=== PATIENT | male | born 1965 | race Caucasian/White ===

== ENCOUNTER 2018-03-22 07:16 | Inpatient (IN) | payer BC ==
[2018-03-22] VITALS (9 sets, daily range): BP systolic 105–137; BP diastolic 60–90; BMI 47.7
[~2018-03-22] VITALS: Ht 172.7 cm; Wt 152.4 kg
--- NOTE | ~2018-03-22 | OP ---
PATIENT NAME: YASMIN MATA MEDICAL RECORD: [id number] :65 LOCATION:D.M2 D.2107 ADMISSION DATE:03/27/18 SURGEON: MICHAEL MARQUEZ MD DATE OF OPERATION: 03/27/2018 SURGEON: Michael Marquez MD (JJ) CO-SURGEON: Baldomero Yi MD PREOPERATIVE DIAGNOSES: Achalasia and hiatal hernia. POSTOPERATIVE DIAGNOSES: Achalasia and hiatal hernia. PROCEDURES PERFORMED: 1. Laparoscopic hiatal hernia repair. 2. Laparoscopic Heller esophagogastromyotomy with Chuck fundoplication. 3. EGD performed by Dr. Yi. Dr. Yi was the first aid instructor for the laparoscopic hiatal hernia repair and laparoscopic esophagogastromyotomy. ESTIMATED BLOOD LOSS: 40 cc. ANESTHESIA: General. COMPLICATIONS: None. SPECIMENS: None. Case was clean. OPERATIVE COURSE: After consent was obtained, the patient was taken to the operating room and placed in the supine position on the operating table. Next, anesthesia was given via endotracheal intubation after a time-out was performed to confirm the correct patient and procedure. The abdomen was prepped and draped in typical sterile fashion. 5 cc local anesthetic was injected just above the umbilicus. A stab incision was made with an 11-blade scalpel. Using an 11-mm bladeless optical trocar, the abdomen was entered under direct laparoscopic vision. Adequate pneumoperitoneum was achieved. The abdominal cavity was inspected. No evidence of boundary, no evidence of bleeding. At this time, all remaining trocars were placed, 12 mm and 5 mm trocar into the right lateral quadrants, two 5 mm trocars in left lateral quadrant, Dc liver retractor in the subxiphoid position. All were placed after the administration of local anesthetic under direct laparoscopic vision. Dc retractor was used to elevate the left lobe of the liver, exposing the gastroesophageal junction. A meticulous dissection was performed with the Harmonic scalpel starting at the gastrohepatic ligament. Dissection continued to the level of the right crura. The right crura was skeletonized using the Harmonic scalpel. We then continued dissecting the hernia sac with the Harmonic scalpel anteriorly. Next, the short gastrics were taken along the cardia of the stomach using the Harmonic scalpel. This was done all the way to the level of the left crura. The left crura was skeletonized, both posteriorly and anteriorly, completing a complete circumferential dissection of the hiatus. The mediastinum was dissected until approximately 4-5 cm of intraabdominal esophagus obtained. The hernia sac was excised in its entirety from the GE junction. The OPERATIVE REPORT [id number] YASMIN MATA hiatus was then closed with an 0 Stratafix polypropylene suture. Next, the esophagomyotomy was performed starting at the GE junction and continued 4 cm into the superior directions of the esophagus and extended an additional 2-3 cm inferiorly under the stomach. At this time, Dr. Yi performed an esophagogastroduodenoscopy. The scope was easily traversed across the area of achalasia. There were no mucosal injuries noted. The scope was advanced into the stomach on 3 different occasions while the myotomy was completed. At this time, the scope was withdrawn. The myotomy was covered with Tisseel. A Chuck fundoplication was then performed using interrupted 3-0 Vicryl suture in an interrupted fashion. At this time, the Dc liver retractor was removed. The abdominal cavity was inspected and no evidence of bowel injury and no evidence of bleeding. The 12 mm and 11 mm trocar sites were closed with a Johnson-Wilfredo suture passer with 0 Vicryl suture under direct laparoscopic vision. At this time, all remaining instruments were removed. The abdomen was desufflated. Trocars removed. Skin was closed with 4-0 Monocryl, Mastisol, and Steri-Strips. At the end of the case, all needle and instrument counts were correct. No complications occurred. The patient was extubated and transferred to the PACU in stable condition. TRANSINT:[id number] Voice Confirmation ID: [id number] DOCUMENT ID: [id number] MICHAEL MARQUEZ MD at 0808 CC: [id number] DICTATION DATE: 03/27/181941 BACKREST ASSEMBLER: 03/27/182142 ADM IN [facility] [address] [place] [address]
[2018-03-22] MEDS ORDERED: ZESTRIL10 MG PO (07:29)
[2018-03-22] MEDS ORDERED: METOPROLOL TART50 MG PO (07:29)
[2018-03-22] MEDS ORDERED: PRAVACHOL20 MG PO (07:29)
[2018-03-22] MEDS ORDERED: PROTONIX40 MG PO (07:30)
[2018-03-22] MEDS ORDERED: ECOTRIN325 MG PO (07:30)
[2018-03-22 08:30] LABS: APPEARANCE HAZY (CLEAR); BILIRUBIN NEGATIVE (NEGATIVE); COLOR DK YELLOW (YELLOW); GLUCOSE NEGATIVE (NEGATIVE); KETONE MODERATE mg/dL (NEGATIVE); NITRITE NEGATIVE (NEGATIVE); PROTEIN NEGATIVE (NEGATIVE); SPECIFIC GRAVITY 1.025 (1.005-1.020)
[2018-03-22 08:31] LABS: AMORPHOUS SEDIMENT <1+ /lpf (NONE SEEN); BACTERIA FEW /hpf (NONE SEEN); EPITHELIAL CELLS OCC /hpf (0-5); HYALINE CAST 0-5 /lpf (NONE SEEN); MUCUS >1+ /lpf (NONE SEEN); RED CELLS - URINE RARE /hpf (0-5); URIC ACID CRYSTALS 0-5 /hpf (NONE SEEN); WHITE CELLS - URINE 0-5 /hpf (0-5)
[2018-03-22 08:33] LABS: ALBUMIN 3.7 g/dL (3.4-5.0); ALKALINE PHOSPHATASE 65 U/L (46-116); ALT (SGPT) 30 U/L (10-68); AMYLASE - SERUM 47 U/L (25-115); BILIRUBIN - TOTAL 1.28 mg/dL (0.2-1.3); CALC OSMOLALITY 287 mosm/kg (275-300); CALCIUM 8.7 mg/dL (8.5-10.1); CARBON DIOXIDE 28.3 mmol/L (21.0-32.0); CHLORIDE - SERUM 106 mmol/L (98-107); CREATININE - SERUM 1.1 mg/dL (0.6-1.3); GLUCOSE 87 mg/dL (74-106); LIPASE 163 U/L (73-393); POTASSIUM - SERUM 3.7 mmol/L (3.5-5.1); PROTEIN - SERUM 7.2 g/dL (6.4-8.2); SODIUM 144 mmol/L (136-145); TROPONIN-I < 0.017 ng/mL (0.000-0.060); UREA NITROGEN 19 mg/dL (7-18); eGFR NON AFRICAN AMERICAN 75 mL/min (90-120)
[2018-03-22 08:52] LABS: BASOPHILS 0.2 % (0-2); HEMATOCRIT 40.8 % (42.0-54.0); HEMOGLOBIN 13.6 g/dL (13.5-17.5); IMMATURE GRANULOCYTES 0.3 % (0-5); LYMPHOCYTES 10.6 % (15-50); MCH 28.4 pg (26.0-34.0); MCHC 33.3 g/dL (31.0-37.0); MCV 85.2 fL (80.0-100.0); MEAN PLATELET VOLUME 11.2 fL (7.4-10.4); MONOCYTES 5.1 % (2-11); NEUTROPHILS 82.8 % (40-80); PLATELET COUNT 128 10x3/uL (130-400); RBC 4.79 10x6/uL (4.20-6.10); RDW 13.9 % (11.5-14.5); WBC 8.7 10x3/uL (4.8-10.8)
[2018-03-22 08:57] LABS: CKMB 0.6 U/L (0.0-3.6)
[2018-03-22 08:58] LABS: CREATINE KINASE 0 UL (21-232)
[2018-03-22 11:41] LABS: CKMB 0.8 U/L (0.0-3.6); CREATINE KINASE 113 UL (21-232); TROPONIN-I < 0.017 ng/mL (0.000-0.060)
[2018-03-22 11:45] LABS: INR 1.11 (0.85-1.17); PROTIME 13.9 SECONDS (11.6-15.0)
[2018-03-22 11:46] LABS: D-DIMER-QUANTITATIVE 0.45 ug/mLFEU (0.20-0.54)
[2018-03-22 12:06] LABS: THYROID STIMULATING HORMONE 0.49 uIU/mL (0.36-3.74)
[2018-03-22 19:26] LABS: CKMB 0.6 U/L (0.0-3.6); CREATINE KINASE 103 UL (21-232)
[2018-03-22 19:29] LABS: TROPONIN-I < 0.017 ng/mL (0.000-0.060)
[2018-03-22 23:19] LABS: CKMB 0.6 U/L (0.0-3.6); CREATINE KINASE 88 UL (21-232)
[2018-03-22 23:29] LABS: TROPONIN-I < 0.017 ng/mL (0.000-0.060)
[2018-03-23] VITALS: BP 128/62
[2018-03-23 04:00] VITALS: BP 134/69
[2018-03-23 05:34] LABS: BASOPHILS 0.1 % (0-2); EOSINOPHILS 0.6 % (0-7); HEMATOCRIT 34.6 % (42.0-54.0); HEMOGLOBIN 11.1 g/dL (13.5-17.5); IMMATURE GRANULOCYTES 0.3 % (0-5); MCH 27.8 pg (26.0-34.0); MCHC 32.1 g/dL (31.0-37.0); MCV 86.5 fL (80.0-100.0); MEAN PLATELET VOLUME 10.8 fL (7.4-10.4); MONOCYTES 5.6 % (2-11); NEUTROPHILS 78.4 % (40-80); PLATELET COUNT 130 10x3/uL (130-400); RDW 13.9 % (11.5-14.5); WBC 6.7 10x3/uL (4.8-10.8)
[2018-03-23 06:03] LABS: ALBUMIN 2.9 g/dL (3.4-5.0); ALKALINE PHOSPHATASE 55 U/L (46-116); ALT (SGPT) 23 U/L (10-68); BILIRUBIN - TOTAL 1.11 mg/dL (0.2-1.3); CALCIUM 8.5 mg/dL (8.5-10.1); CARBON DIOXIDE 27.2 mmol/L (21.0-32.0); CHLORIDE - SERUM 111 mmol/L (98-107); CREATININE - SERUM 0.9 mg/dL (0.6-1.3); GLUCOSE 84 mg/dL (74-106); POTASSIUM - SERUM 3.7 mmol/L (3.5-5.1); PROTEIN - SERUM 6.4 g/dL (6.4-8.2); SODIUM 145 mmol/L (136-145); eGFR NON AFRICAN AMERICAN > 90 mL/min (90-120)
[2018-03-23 06:07] LABS: CALC OSMOLALITY 286 mosm/kg (275-300); UREA NITROGEN 11 mg/dL (7-18)
[2018-03-23 09:28] VITALS: BP 136/72
[2018-03-23 12:30] VITALS: BP 138/71
[2018-03-23 12:40] VITALS: BMI 47.6
[2018-03-23 16:10] VITALS: BP 131/67
[2018-03-23 20:00] VITALS: BP 131/72
[2018-03-24] VITALS (7 sets, daily range): BP systolic 128–153; BP diastolic 71–79
[2018-03-24 04:29] LABS: BASOPHILS 0.3 % (0-2); EOSINOPHILS 3.3 % (0-7); HEMATOCRIT 34.7 % (42.0-54.0); HEMOGLOBIN 11.3 g/dL (13.5-17.5); IMMATURE GRANULOCYTES 0.5 % (0-5); LYMPHOCYTES 26.5 % (15-50); MCHC 32.6 g/dL (31.0-37.0); MCV 85.9 fL (80.0-100.0); MONOCYTES 8.7 % (2-11); NEUTROPHILS 60.7 % (40-80); PLATELET COUNT 128 10x3/uL (130-400); RBC 4.04 10x6/uL (4.20-6.10); RDW 13.5 % (11.5-14.5)
[2018-03-24 04:34] LABS: WBC 3.9 10x3/uL (4.8-10.8)
[2018-03-24 04:59] LABS: ALBUMIN 2.8 g/dL (3.4-5.0); ALKALINE PHOSPHATASE 52 U/L (46-116); ALT (SGPT) 23 U/L (10-68); BILIRUBIN - TOTAL 0.67 mg/dL (0.2-1.3); CALC OSMOLALITY 283 mosm/kg (275-300); CALCIUM 8.3 mg/dL (8.5-10.1); CARBON DIOXIDE 25.2 mmol/L (21.0-32.0); CHLORIDE - SERUM 111 mmol/L (98-107); CREATININE - SERUM 0.7 mg/dL (0.6-1.3); GLUCOSE 85 mg/dL (74-106); POTASSIUM - SERUM 3.5 mmol/L (3.5-5.1); PROTEIN - SERUM 6.3 g/dL (6.4-8.2); SODIUM 144 mmol/L (136-145); UREA NITROGEN 8 mg/dL (7-18); eGFR NON AFRICAN AMERICAN > 90 mL/min (90-120)
[2018-03-25 01:32] VITALS: BP 141/88
[2018-03-25 04:55] LABS: BASOPHILS 0.2 % (0-2); EOSINOPHILS 3.2 % (0-7); HEMATOCRIT 33.7 % (42.0-54.0); HEMOGLOBIN 11.1 g/dL (13.5-17.5); IMMATURE GRANULOCYTES 0.5 % (0-5); LYMPHOCYTES 25.5 % (15-50); MCHC 32.9 g/dL (31.0-37.0); MCV 85.1 fL (80.0-100.0); MEAN PLATELET VOLUME 11.1 fL (7.4-10.4); MONOCYTES 8.3 % (2-11); NEUTROPHILS 62.3 % (40-80); PLATELET COUNT 126 10x3/uL (130-400); RBC 3.96 10x6/uL (4.20-6.10); RDW 13.5 % (11.5-14.5); WBC 4.4 10x3/uL (4.8-10.8)
[2018-03-25 05:21] LABS: ALBUMIN 2.8 g/dL (3.4-5.0); ALKALINE PHOSPHATASE 46 U/L (46-116); ALT (SGPT) 22 U/L (10-68); BILIRUBIN - TOTAL 0.71 mg/dL (0.2-1.3); CALC OSMOLALITY 275 mosm/kg (275-300); CALCIUM 8.4 mg/dL (8.5-10.1); CHLORIDE - SERUM 108 mmol/L (98-107); CREATININE - SERUM 0.8 mg/dL (0.6-1.3); GLUCOSE 87 mg/dL (74-106); POTASSIUM - SERUM 3.5 mmol/L (3.5-5.1); SODIUM 140 mmol/L (136-145); UREA NITROGEN 7 mg/dL (7-18); eGFR NON AFRICAN AMERICAN > 90 mL/min (90-120)
[2018-03-25 06:11] VITALS: BP 125/79
[2018-03-25 09:07] VITALS: BP 132/80
[2018-03-25 13:07] VITALS: Ht 172.7 cm; Wt 152.4 kg
[2018-03-25 16:54] VITALS: BP 140/86
[2018-03-25 20:51] VITALS: BP 148/94
[2018-03-26 00:37] VITALS: BP 136/70
[2018-03-26 04:50] LABS: BASOPHILS 0.2 % (0-2); EOSINOPHILS 3.1 % (0-7); HEMATOCRIT 32.5 % (42.0-54.0); IMMATURE GRANULOCYTES 0.5 % (0-5); LYMPHOCYTES 23.6 % (15-50); MCH 28.1 pg (26.0-34.0); MCHC 33.8 g/dL (31.0-37.0); MEAN PLATELET VOLUME 10.7 fL (7.4-10.4); MONOCYTES 8.7 % (2-11); NEUTROPHILS 63.9 % (40-80); PLATELET COUNT 120 10x3/uL (130-400); RBC 3.91 10x6/uL (4.20-6.10); RDW 13.3 % (11.5-14.5); WBC 4.2 10x3/uL (4.8-10.8)
[2018-03-26 04:51] LABS: MCV 83.1 fL (80.0-100.0)
[2018-03-26 05:15] LABS: ALBUMIN 2.7 g/dL (3.4-5.0); ALKALINE PHOSPHATASE 50 U/L (46-116); ALT (SGPT) 24 U/L (10-68); BILIRUBIN - TOTAL 0.97 mg/dL (0.2-1.3); CALC OSMOLALITY 278 mosm/kg (275-300); CALCIUM 8.5 mg/dL (8.5-10.1); CARBON DIOXIDE 27.9 mmol/L (21.0-32.0); CHLORIDE - SERUM 107 mmol/L (98-107); CREATININE - SERUM 0.7 mg/dL (0.6-1.3); GLUCOSE 101 mg/dL (74-106); POTASSIUM - SERUM 3.5 mmol/L (3.5-5.1); PROTEIN - SERUM 5.9 g/dL (6.4-8.2); SODIUM 141 mmol/L (136-145); UREA NITROGEN 8 mg/dL (7-18); eGFR NON AFRICAN AMERICAN > 90 mL/min (90-120)
[2018-03-26 06:06] VITALS: BP 139/75
[2018-03-26 08:48] VITALS: BP 138/87
[2018-03-26 11:58] VITALS: BP 145/82
[2018-03-26 20:30] VITALS: BP 130/86
[2018-03-27 00:30] VITALS: BP 120/80
[2018-03-27 04:30] VITALS: BP 108/63
[2018-03-27 04:56] LABS: BASOPHILS 0.2 % (0-2); EOSINOPHILS 3.2 % (0-7); HEMATOCRIT 34.5 % (42.0-54.0); HEMOGLOBIN 11.7 g/dL (13.5-17.5); IMMATURE GRANULOCYTES 0.5 % (0-5); LYMPHOCYTES 21.2 % (15-50); MCHC 33.9 g/dL (31.0-37.0); MCV 82.5 fL (80.0-100.0); MEAN PLATELET VOLUME 10.3 fL (7.4-10.4); MONOCYTES 9.1 % (2-11); NEUTROPHILS 65.8 % (40-80); PLATELET COUNT 119 10x3/uL (130-400); RBC 4.18 10x6/uL (4.20-6.10); RDW 13.4 % (11.5-14.5); WBC 4.1 10x3/uL (4.8-10.8)
[2018-03-27 05:19] LABS: ALBUMIN 2.8 g/dL (3.4-5.0); ALKALINE PHOSPHATASE 50 U/L (46-116); ALT (SGPT) 25 U/L (10-68); BILIRUBIN - TOTAL 1.14 mg/dL (0.2-1.3); CALC OSMOLALITY 278 mosm/kg (275-300); CALCIUM 8.3 mg/dL (8.5-10.1); CARBON DIOXIDE 29.3 mmol/L (21.0-32.0); CHLORIDE - SERUM 105 mmol/L (98-107); CREATININE - SERUM 0.7 mg/dL (0.6-1.3); GLUCOSE 100 mg/dL (74-106); POTASSIUM - SERUM 3.6 mmol/L (3.5-5.1); PROTEIN - SERUM 5.5 g/dL (6.4-8.2); SODIUM 141 mmol/L (136-145); UREA NITROGEN 7 mg/dL (7-18); eGFR NON AFRICAN AMERICAN > 90 mL/min (90-120)
[2018-03-27 09:39] VITALS: BP 129/71
[2018-03-27 11:32] LABS: % SATURATION 13 % (15-55); IRON 29 ug/dl (35-150); TOTAL IRON BIND CAPACITY 212 ug/dl (260-445); UNSAT IRON BIND CAPACITY 183 ug/dl (150-375)
[2018-03-27 13:30] VITALS: BP 155/83
[2018-03-27 17:09] VITALS: BP 146/79
[2018-03-27 21:04] VITALS: BP 122/65
[2018-03-28] VITALS: BP 142/81
[2018-03-28 04:00] VITALS: BP 131/70
[2018-03-28 06:13] LABS: ANION GAP 10.7 mmol/L (8-16); CALCIUM 8.3 mg/dL (8.5-10.1); CARBON DIOXIDE 28.4 mmol/L (21.0-32.0); POTASSIUM - SERUM 4.1 mmol/L (3.5-5.1)
[2018-03-28 06:19] LABS: CREATININE - SERUM 1.1 mg/dL (0.6-1.3)
[2018-03-28 06:57] LABS: BASOPHILS 0.2 % (0-2); EOSINOPHILS 0.2 % (0-7); HEMATOCRIT 36.9 % (42.0-54.0); HEMOGLOBIN 12.5 g/dL (13.5-17.5); IMMATURE GRANULOCYTES 0.5 % (0-5); MCH 28.4 pg (26.0-34.0); MCHC 33.9 g/dL (31.0-37.0); MCV 83.9 fL (80.0-100.0); MEAN PLATELET VOLUME 10.9 fL (7.4-10.4); MONOCYTES 4.4 % (2-11); NEUTROPHILS 88.7 % (40-80); PLATELET COUNT 110 10x3/uL (130-400); RDW 13.9 % (11.5-14.5)
[2018-03-28 07:00] LABS: WBC 6.6 10x3/uL (4.8-10.8)
[2018-03-28 08:21] VITALS: BP 142/80
[2018-03-28 10:14] LABS: FOLATE (FOLIC ACID) - SERUM 4.2 ng/mL (>3.0)
[2018-03-28 11:47] VITALS: BP 123/69
[2018-03-28 16:30] VITALS: BP 137/79
[2018-03-28 20:49] VITALS: BP 139/82
[2018-03-29 00:35] VITALS: BP 134/72
[2018-03-29 05:15] VITALS: BP 139/72
[2018-03-29 05:32] LABS: BASOPHILS 0.1 % (0-2); EOSINOPHILS 1.9 % (0-7); HEMATOCRIT 35.6 % (42.0-54.0); HEMOGLOBIN 11.9 g/dL (13.5-17.5); IMMATURE GRANULOCYTES 0.3 % (0-5); LYMPHOCYTES 4.6 % (15-50); MCH 28.4 pg (26.0-34.0); MCHC 33.4 g/dL (31.0-37.0); MEAN PLATELET VOLUME 11.2 fL (7.4-10.4); MONOCYTES 4.8 % (2-11); NEUTROPHILS 88.3 % (40-80); PLATELET COUNT 115 10x3/uL (130-400); RBC 4.19 10x6/uL (4.20-6.10); RDW 14.1 % (11.5-14.5); WBC 7.9 10x3/uL (4.8-10.8)
[2018-03-29 05:45] LABS: CALC OSMOLALITY 274 mosm/kg (275-300); CALCIUM 8.3 mg/dL (8.5-10.1); CARBON DIOXIDE 32.6 mmol/L (21.0-32.0); CHLORIDE - SERUM 104 mmol/L (98-107); CREATININE - SERUM 0.9 mg/dL (0.6-1.3); GLUCOSE 107 mg/dL (74-106); POTASSIUM - SERUM 4.1 mmol/L (3.5-5.1); SODIUM 138 mmol/L (136-145); UREA NITROGEN 11 mg/dL (7-18); eGFR NON AFRICAN AMERICAN > 90 mL/min (90-120)
[2018-03-29 07:55] VITALS: BP 122/70
[2018-03-29 11:14] VITALS: BP 114/66
[2018-03-29] MEDS ORDERED: CYCLOBENZAPRINE10 MG PO (13:39)
[2018-03-29] MEDS ORDERED: OXYCODONE HCL5 MG PO (13:39)
[2018-03-29 15:43] VITALS: BP 112/67
[2018-03-29 20:21] VITALS: BP 101/53
[2018-03-30 00:31] VITALS: BP 120/69
[2018-03-30 04:37] VITALS: BP 122/71
[2018-03-30 05:43] LABS: BASOPHILS 0.3 % (0-2); EOSINOPHILS 4.5 % (0-7); HEMOGLOBIN 12.9 g/dL (13.5-17.5); IMMATURE GRANULOCYTES 0.5 % (0-5); LYMPHOCYTES 11.3 % (15-50); MCH 28.2 pg (26.0-34.0); MCHC 33.1 g/dL (31.0-37.0); MCV 85.3 fL (80.0-100.0); MEAN PLATELET VOLUME 11.4 fL (7.4-10.4); NEUTROPHILS 75.4 % (40-80); PLATELET COUNT 136 10x3/uL (130-400); RBC 4.57 10x6/uL (4.20-6.10); RDW 14.5 % (11.5-14.5); WBC 6.4 10x3/uL (4.8-10.8)
[2018-03-30 06:00] LABS: CALC OSMOLALITY 279 mosm/kg (275-300); CALCIUM 8.9 mg/dL (8.5-10.1); CARBON DIOXIDE 30.7 mmol/L (21.0-32.0); CHLORIDE - SERUM 104 mmol/L (98-107); CREATININE - SERUM 0.9 mg/dL (0.6-1.3); GLUCOSE 95 mg/dL (74-106); POTASSIUM - SERUM 3.6 mmol/L (3.5-5.1); SODIUM 141 mmol/L (136-145); UREA NITROGEN 9 mg/dL (7-18); eGFR NON AFRICAN AMERICAN > 90 mL/min (90-120)
[2018-03-30 07:52] VITALS: BP 125/65
[2018-03-30 12:15] VITALS: BP 111/56
[2018-03-30 16:12] VITALS: BP 123/67
== END 2018-03-30 18:44 | disposition home or self-care (01) | DRG 326 ==
LOC: D.ER 07:16 → D.EDHOLD 10:59 → D.M2 10:59 → OBSVTIME 10:59 → D.M2 13:46 → D.SDCHOLD 03-23 13:18 → D.M2 03-23 13:20
PROVIDERS: Family Medicine; Internal Medicine Nephrology; Surgery
PROC: 0DJ08ZZ Inspection of Upper Intestinal Tract, Via Natural or Artificial Opening Endoscopic (ICD-10-PCS; 2018-03-22)
PROC: 0BQT4ZZ Repair Diaphragm, Percutaneous Endoscopic Approach (ICD-10-PCS; 2018-03-27)
PROC: 0DV44ZZ Restriction of Esophagogastric Junction, Percutaneous Endoscopic Approach (ICD-10-PCS; principal; 2018-03-27 12:30)
PROC: 0D844ZZ Division of Esophagogastric Junction, Percutaneous Endoscopic Approach (ICD-10-PCS; 2018-03-27 12:30)
DX: K22.0 Achalasia of cardia (principal); E43 Unspecified severe protein-calorie malnutrition; Z68.42 Body mass index [BMI] 45.0-49.9, adult; D61.818 Other pancytopenia; K44.9 Diaphragmatic hernia without obstruction or gangrene; K22.2 Esophageal obstruction; I10 Essential (primary) hypertension; I25.10 Atherosclerotic heart disease of native coronary artery without angina pectoris; R13.10 Dysphagia, unspecified

== ENCOUNTER 2018-04-02 13:03 | Inpatient (IN) | payer BC ==
[~2018-04-02] VITALS: Ht 172.7 cm
--- NOTE | ~2018-04-02 | PN ---
PATIENT:YASMIN MATA MEDICAL RECORD: [id number] LOCATION:D.ICU D.231 ADMISSION DATE: 04/04/18 PROGRESS NOTE DATE OF SERVICE: 04/22/2018 SUBJECTIVE: This is a 52-year-old man, who has a Boerhaave syndrome with esophageal stricture. This was repaired and was asked to drink clear liquids. The patient ate potatoes and potato soup. The patient has severe chest pain radiating to the back, also had abdominal pain. He was seen with respiratory distress. He was noted to have peritonitis, pneumonia, and right pleural effusion. The patient was taken to surgery and lavaged with saline. Has been on the ventilator, has had thoracentesis. The patient has had antibiotics. He has also had multiple transfusions because of anemia. He has had GI bleed. Has also had focal seizures. He has been on Keppra as well as Ativan for seizure control. A CT scan shows no acute injury. The patient continues to be on antibiotics for pneumoperitoneum as well as pneumomediastinum due to esophageal tear. PHYSICAL EXAMINATION: GENERAL: Reveals a middle-aged man, who is sedated on the ventilator. VITAL SIGNS: Temperature 98.2, heart rate of 120, respiratory rate of 22, blood pressure 118/79, saturations 97%. SHEENT: The patient has nasogastric tube. NECK: Supple. There is a tracheostomy tube. CHEST: Showed some mild crackles. No accessory muscle use. CARDIAC: Shows no jugular venous distention, murmur, or gallops. ABDOMEN: Benign. There is VAC. NEUROLOGIC: The patient is sedated. There are no focal signs. LABORATORY DATA: Lab exam showed white count of 9.2, hemoglobin 5.2, platelet count is 242,000. Arterial blood gas: PH 7.45, pCO2 of 42, pO2 of 139, on 50%. Chemistry is remarkable for creatinine of 1.6, BUN of 40. Chest x-ray showed worsening left basilar airspace disease and pleural effusion, status post left chest tube removal. ASSESSMENT: 1. Acute respiratory failure with hypercapnia and hypoxia. 2. Esophageal tear. 3. Pneumomediastinum, pneumoperitoneum. 4. Focal seizure disorder. 5. Severe anemia secondary to blood loss. 6. Boerhaave syndrome. 7. Coronary artery disease, status post [place]. DISCUSSION: NEUROPSYCHIATRY: The patient is sedated. It is unclear if the patient is having seizures. There are no focal signs. CARDIOVASCULAR: No issues at this time. He has a history of coronary artery disease and [place] in the past. PULMONARY/RESPIRATORY: The patient on mechanical ventilator. He is on bronchodilators. He had pneumomediastinum, which is resolved. GASTROINTESTINAL/DIETARY: The patient is tolerating tube feedings. PLAN: PROGRESS NOTE [id number] YASMIN MATA 1. Blood transfusion. 2. Continue mechanical ventilation. We will begin to wean the patient off the ventilator tomorrow morning if there is no event. 3. Continue bronchodilators. TRANSINT:[id number] Voice Confirmation ID: [id number] DOCUMENT ID: [id number] JOEL ROLLINS at 0836 CC: [id number] DICTATION DATE: 04/22/18 1130 TRACK SUPERVISOR: 04/22/18 1328 ADM IN [facility] [address] [place] [address]
--- NOTE | ~2018-04-02 | PN ---
PATIENT:YASMIN MATA MEDICAL RECORD: [id number] LOCATION:.[facility] D.231 ADMISSION DATE: 04/04/18 PROGRESS NOTE DATE OF SERVICE: 04/19/2018 This is a 52-year-old man who has had a history of esophageal stricture and was repaired. SUBJECTIVE: The patient was asked to drink lot of fluids, but decided to eat potatoes and potato soup. The patient developed severe retching, chest pain which radiates to the back. He was brought to the Emergency Room in severe respiratory distress and was intubated, suspected peritonitis, ruptured esophagus. The patient was taken to surgery and the peritoneal was lavaged. He also had a chest tube drainage. The patient has been on the ventilator, sedated. There is no fever or chills. PHYSICAL EXAMINATION: GENERAL: Reveals middle-aged man who is on a ventilator. VITAL SIGNS: Temperature 99.1, heart rate of 102, respiratory rate of 19, blood pressure 116/70, he is 94% on 50% FiO2. SHEENT: Normocephalic. Pupils equal and reactive. NECK: Supple. CHEST: Showed bilateral coarse crackles. HEART: Shows no jugular venous distention. ABDOMEN: There is no tenderness. There is no distention. EXTREMITIES: Shows no clubbing, cyanosis or edema. LABORATORY DATA: Showed patchy airspace disease, interstitial prominence with probable small pleural effusions. CBC showed white count 9.7, hemoglobin of 9, the platelet count is 264,000. Chemistry is remarkable for sodium of 148, potassium is 4.1, creatinine is 1.8, BUN is 29. Arterial blood gas; pH is 7.47, pCO2 of 45, pO2 is 73. ASSESSMENT: 1. Aspiration pneumonia. The patient is on antibiotics. No leukocytosis. Chest x-ray showed persistent infiltrates. 2. Peritonitis. Status post saline lavage. 3. Anemia. 4. Acute kidney injury. 5. Morbid obesity. DISCUSSION: 1. Neuropsychiatric: The patient is sedated. No focal signs. 2. Cardiovascular: There are no arrhythmias or evidence of congestive heart failure. 3. Pulmonary and respiratory: The patient is on mechanical ventilator; and pneumonia, some bronchodilators. 3. Gastrointestinal and dietary: The patient is n.p.o., has nothing by mouth. PLAN: 1. Vent support. 2. Continue antibiotics. TRANSINT:[id number] Voice Confirmation ID: [id number] DOCUMENT ID: [id number] PROGRESS NOTE [id number] YASMIN MATA AUGUSTINE K at 0809 CC: [id number] DICTATION DATE: 04/19/182157 FISHER REEF NET: 04/20/18 0947 ADM IN [facility] [address] [place] [address]
--- NOTE | ~2018-04-02 | PN ---
PATIENT:YASMIN MATA MEDICAL RECORD: [id number] LOCATION:D.ICU D.231 ADMISSION DATE: 04/04/18 PROGRESS NOTE DATE OF SERVICE: 04/17/2018 SUBJECTIVE: A 52-year-old man who has had esophageal stricture repair procedure. The patient was sent home and instructed to eat anything, but clear liquids or water. The patient apparently ate some potato soup as well as potatoes. He began to retch, pain in the chest as well as in the back. He was noted in respiratory arrest, was intubated and did well. He was noted to have left pleural effusion. Chest tube was placed. The possibility of esophageal tear was detained and the patient is being treated as such. OBJECTIVE: GENERAL: Reveals a middle-aged man, who is in no acute distress, on a ventilator, sedated. VITAL SIGNS: Temperature 99.9, heart rate of 105, respiratory rate 50, blood pressure 116/73, saturation 93. SHEENT: Unremarkable. NECK: Supple. There is no adenopathy. Trachea is midline. CHEST: Coarse crackles bilaterally, worse on the left. CARDIAC: Showed no jugular venous distention, murmur, or gallop. ABDOMEN: Benign. EXTREMITIES: No clubbing, cyanosis, or edema. NEUROLOGIC: The patient moves all extremities. No focal signs. He is currently sedated. LABORATORY DATA: Lab exam showed white count of 8.1, hemoglobin 8.4, and platelet count is 305,000. Arterial blood gas: PH of 7.48, pCO2 of 44, pO2 of 128, on 100% FIO2. Chemistries remarkable for sodium of 147, creatinine is 1.6, magnesium 2.9. Phosphorus 2.9, albumin 1.4. ASSESSMENT: 1. Acute respiratory failure status post cardiopulmonary arrest. 2. Cardiopulmonary arrest, probably secondary to esophageal tear. 3. History of achalasia with repair and esophageal tear. It has been followed by surgery. 4. Hypoalbuminemia. PLAN: 1. Ventilatory support and bronchodilator therapy. 2. Empiric antibiotics. We need to add Diflucan for fungal infection. TRANSINT:[id number] Voice Confirmation ID: [id number] DOCUMENT ID: [id number] PROGRESS NOTE [id number] YASMIN MATA JOEL ROLLINS at 0809 CC: [id number] DICTATION DATE: 04/17/18 2356 RN HOSPITAL: 04/18/18 0921 ADM IN [facility] [address] [place] [id number]
--- NOTE | ~2018-04-02 | OP ---
PATIENT NAME: YASMIN MATA MEDICAL RECORD: [id number] :65 LOCATION:.[facility] D.2312 ADMISSION DATE:04/04/18 SURGEON: MICHAEL MARQUEZ MD DATE OF OPERATION: 04/10/2018 SURGEON: Michael Marquez MD PREOPERATIVE DIAGNOSES: 1. Esophageal perforation. 2. Sepsis. 3. Boerhaave syndrome. 4. History of achalasia. 5. History of Heller myotomy. POSTOPERATIVE DIAGNOSES: 1. Esophageal perforation. 2. Sepsis. 3. Boerhaave syndrome. 4. History of achalasia. 5. History of Heller myotomy. PROCEDURE PERFORMED: 1. Abdominal washout. 2. Delayed removal of wound VAC and delayed abdominal closure. 3. Replacement of negative pressure wound therapy, VAC greater than 50 squared-cm. ANESTHESIA: General. COMPLICATIONS: None. SPECIMENS: None. Case was contaminated. OPERATIVE COURSE: After consent was obtained, the patient was taken to the operating room and placed in the supine position on the operating table. Next, general anesthesia was given via endotracheal intubation after a timeout was taken to confirm the correct patient and procedure. The intra-abdominal ABThera VAC was removed. The abdomen was prepped and draped in typical sterile fashion. A Bookwalter retractor was placed. The abdominal wound was placed under retraction. The abdomen was copiously irrigated with 3 liters of warm normal saline. All 4 quadrants were inspected. There was no intra-abdominal fluid collections identified. There was no succuss. The anterior surface of the stomach and the anterior esophagus were examined and there was no evidence of leak. The suture line was healing well. The VELMA drain was placed through the hiatus and into the lower inferior mediastinum. Evicel was again placed on the anterior surface of the esophagus and stomach over the area of primary repair. The omental tissue flap was again placed onto the anterior suture line repair and stay sutures were placed to the diaphragm using 3-0 Vicryl suture. The jejunal feeding tube site was inspected. It was healing well to the anterior abdominal wall with no sign of obstruction. At this time, the retractor was removed. The abdomen was again copiously irrigated and suctioned. The fascia was closed with #1 looped PDS. A silver wound VAC was placed in the subcutaneous tissue and placed at the wound. Wound VAC was approximately 20 cm OPERATIVE REPORT [id number] YASMIN MATA in length x 6 cm in width x 4 cm in depth. It was placed to suction with good seal. At the end of the case, all needle and instrument counts were correct. No complications occurred. The patient was transferred to the ICU in critical condition. TRANSINT:[id number] Voice Confirmation ID: [id number] DOCUMENT ID: [id number] MICHAEL MARQUEZ MD at 1722 CC: [id number] DICTATION DATE: 04/10/18 1518 QUILL CLEANER: 04/10/18 1713 ADM IN [place] [id number] [place] [address]
--- NOTE | ~2018-04-02 | HEMODYNAMI ---
PATIENT:YASMIN MATA MEDICAL RECORD: [id number] : 65 LOCATION:[facility] D.231 ADMISSION DATE: 04/04/18 Generatedon:04/25/201816:45 Patient name: YASMIN MATA Patient #: [id number] SSN: : [birth year] Date of study: 04/25/2018 Page: Of Hemodynamic Procedure Report Patient Data Patient Demographics Procedure consent was obtained First Name: YASMIN Gender: Male Last Name: ADOLFO : 1965 [facility] Initial: PAIGE Age: 52 year(s) Patient #: [id number] Race: Unknown Additional ID: [id number] Contact details [address]: [address] [place] [address] COURT State: [place] City: [facility] Zip code: [address] Admission Admission Data Admission Date: 04/04/2018 Admission Time: 14:57 Room #: [facility] Procedure Procedure Types Cath Procedure Peripheral Cath Diagnostic Procedure Miscellaneous Procedure Description Procedure Date Procedure Date: 04/25/2018 Procedure Start Time: 15:55 Procedure Staff Name Function Long De Jesus MD Performing Physician Pedro Benavides RT Monitor Ary Davidson RT Scrub Lizzy Hudson RN Nurse Procedure Data Cath Procedure Fluoroscopy Diagnostic fluoroscopy Total fluoroscopy Time: 4.4 time: 4.4 min min Diagnostic fluoroscopy Total fluoroscopy dose: 622 dose: 622 mGy mGy Contrast Material Contrast Material Type Amount (ml) Isovue 300 65 Diagnostic catheters Device Type Used For End Catheter Placement Merit UHF Pigtail VESSEL SIZING 5Fr 65CM catheter ([id number]) Merit UHF Pigtail VESSEL SIZING 5Fr 65CM catheter ([id number]) Procedure Medications Medication Administration Route Dosage Heparin Flush Bag added to field 2 bags (1000units/500ml NS) Heparin Flush Bag added to field 1 bags (1000units/500ml NS) Lidocaine 1% 20 Hemodynamics Rest Pre Cath Intra NCS Post Cath Medications Time Medication Route Dose Verified Delivered Reason Notes Effecti veness by by 15:53:05 Heparin Flush added 2 Long Bag to bags Agustína, (1000units/500ml field NS) 15:53:17 Heparin Flush added 1 Long Bag to bags Burda, (1000units/500ml field NS) 15:53:28 Lidocaine 1% 20ml Long vial MD Liza Procedure Log Time Note 15:31:25 Pedro Benavides RT (R) (CV) sent for patient. Start room use. 15:31:33 Time tracking: Regular hours (M-F 7:00 - 5:00) 15:31:38 Plan of Care:Hemodynamics will remain stable., Cardiac rhythm will remain stable., Comfort level will be maintained., Respiratory function will remain adequate., Patient/ family verbilizes understanding of procedure., Procedure tolerated without complication., Recovers from procedure without complications.. 15:31:44 Patient received from ICU to IR Alert and oriented. Tansferred to table in Supine position. 15:31:45 Correct patient and procedure confirmed by team. 15:31:48 Signed procedure consent form obtained from spouse. 15:31:51 ECG and BP/O2 sat monitors applied to patient. 15:31:53 Full Disclosure recording started 15:31:54 - 15:32:07 Unable to provide pre-op teaching due to educational barrier. pt on gee t 15:32:09 Family unavailable. 15:32:12 Patient NPO since Midnight. 15:43:47 Right neck area was prepped with chlora-prep and draped in sterile fashion 15:46:40 pt on icu monitor. icu nurse bolused versed 4mg. vs stable 15:53:05 Heparin Flush Bag (1000units/500ml NS) 2 bags added to field was administered by ; ; 15:53:17 Heparin Flush Bag (1000units/500ml NS) 1 bags added to field was administered by ; ; 15:53:28 Lidocaine 1% 20ml vial was administered by ; ; 15:54:42 Physician arrived 15:54:43 --------ALL STOP TIME OUT------ 15:54:44 Final Timeout: patient, procedure, and site verified with staff and physician. All members of the team are in agreement. 15:54:46 Right neck site verified by team. 15:54:55 Sedation plan: Local Anesthetic Medication:Lidocaine 15:55:04 Procedure started. 15:55:08 Local anesthetic to right IJ vein with Lidocaine 1% by Long De Jesus MD.INITIAL ACCESS ONLY 15:55:18 A Site Tour UHF Pigtail VESSEL SIZING 5Fr 65CM catheter ([id number]) was advanced over the wire and used for . 15:55:19 TUBING Contrast Injection High Pressure (GNA017A) opened to sterile field. 15:55:19 TUBING Contrast Injection High Pressure (QRO293N) opened to sterile field. 15:55:20 DOC .035 wire (O90848) opened to sterile field. 15:55:20 Micropuncture VSI 4FR kit opened to sterile field. 15:55:22 A WeOrder LTDF Pigtail VESSEL SIZING 5Fr 65CM catheter ([id number]) was advanced over the wire and used for . 15:55:23 SHEATH 5FR [place] (PWF746) opened to sterile field. 15:55:24 FILTER Beltrami Jugular Vena Cava (SC815A) opened to sterile field. 15:59:48 GLIDE CATHETER 5FR ANGLED 65cm (CG507) opened to sterile field. 16:07:24 Beltrami Jugular IVC filter was placed below renal veins. 16:07:59 AMPLATZ Super stiff 180cm wire ([id number]) opened to sterile field. 16:14:55 Procedure ended.(Physican Out) 16:15:13 Fluoroscopy time 04.40 minutes. 16:15:26 Fluoroscopy dose: 622 mGy 16:15:26 Flurop Dose total: 622 16:15:40 Contrast amount:Isovue 300 65ml. 16:15:41 Sharps counted by scrub and verified by R.N. 16:15:56 Insertion/operative site no bleeding no hematoma. 16:16:01 Post-op/insertion site Right Jugular vein dressed using a 4 x 4 and Tegaderm. 16:16:14 Post right IJ vein:stable 16:17:00 UNALBLE TO GIVE POST INSTRUCTIONS DUE TO PT ON VENT 16:22:01 Procedure and supply charges have been captured, reviewed, submitted an d are correct. 16:44:56 Report given to ICU. 16:45:00 Patient transfered to ICU with Bed. Device Usage Item Name Manufacture Quantity Catalog Hospital Part Current Minima l Lot# / Number Charge Number Stock Stock Serial# Code Merit UH Merit 2 [id number] 5 Pigtail Medical VESSEL SIZING 5Fr 65CM catheter ([id number]) TUBING Merit 2 [id number] 380699 174137 5 Contrast Medical Injection High Pressure (UNA092I) DOC .035 wire Cook [employer] 1 [id number] 260749 575866 5 (O33756) Micropuncture VSI VASCULAR 1 7266V 321718 112134 5 VSI 4FR kit SOLUTIONS SHEATH 5FR Terumo 1 ZMU730 273541 913133 327153 40 [place] (SVG086) FILTER Connie Bard 1 [id number] 623409 913331 664058 5 [id number] Jugular Vena Cava (KC647F) GLIDE Terumo 1 CG507 633487 412579 5 CATHETER 5FR ANGLED 65cm (CG507) AMPLATZ Super [place] 1 [id number] 506800 404148 5 [id number] stiff 180cm Scientific wire ([id number]) Signature Audit Nellis Stage Time Signature Unsigned Intra-Procedure 04/25/2018 Pedro 4:45:23 PM Makayla RT (R) (CV) Signatures Monitor : Pedro Signature : Makayla RT Date : Time : [place] [id number] [place] [address]
--- NOTE | ~2018-04-02 | EC ---
PATIENT:YASMIN MATA DATE OF SERVICE: 04/04/18 SEX: M MEDICAL RECORD: [id number] DATE OF : 65 LOCATION:[place] [address] AGE OF PATIENT: 52 ADMISSION DATE: 04/04/18 REFERRING PHYSICIAN: INTERPRETING PHYSICIAN: BAY JONES MD ECHOCARDIOGRAM REPORT ECHO CHARGES 4 ECHO COMPLETE Date: 04/16 CLINICAL DIAGNOSIS: PE/POST CODE ASSES FOR CLOTS ECHOCARDIOGRAPHIC MEASUREMENTS (adult normal given) AC root (d.<3.7cm) 4.2 cm LV Septum d (<1.2 cm> 1.8 cm Valve Excursion 1.4 cm LV Septum (systole) 2.0 cm Left Atria (s.<4.0cm> 3.5 cm LVPW d(<1.2cm) 1.8 cm RV (d.<2.3cm) 3.7 cm LVPW (sytole) 2.0 cm LV diastole(<5.6CM) 4.7 cm MV E-F(>70mm/sec) cm LV systole 2.8 cm LVOT Diameter 1.9 cm MV exc.(>10mm) 1.5 cm Est.ejection fraction (50-75%) % DOPPLER: LVIT cm/sec A 78.0 cm/sec E 108 cm/sec LA cm/sec RVSP 62 mmHg LVOT 111 cm/sec AOP1/2T m/s Asc. Ao 201 cm/sec RVOT 83 cm/sec RA cm/sec PA 114 cm/sec AV Gradient Peak 16.18mmHg AV Mean 7.98 mmHg AV Area 1.6 cm MV Gradient Peak 6.48 mmHg MV Mean 2.26 mmHg MV Area cm COMMENTS: Row Boss Hoeing: 2 KEELY WONG Developmental Training Counselor: 3 Dr. Seasl TAPE# PACS Pericardial Effusion N DATE OF SERVICE: A technically difficult study due to the patient's underlying respiratory status. Adequate 2D, color flow, spectral Doppler, M-mode. LVH present. LV internal dimensions are normal. Wall motion is normal. EF is greater than 55%. Aortic valve tricuspid. No evidence of stenosis by Doppler interrogation. Left atrium is normal at 3.5 cm. The mitral valve shows no ECHOCARDIOGRAM REPORT [id number] YASMIN MATA prolapse. There is a possible vegetation on the anterior leaflet with moderate MR. Right-sided chambers are grossly normal. Moderate TR on color flow imaging. TRANSINT:[id number] Voice Confirmation ID: [id number] DOCUMENT ID: [id number] BAY JONES MD at 1254 CC: [id number] DICTATION DATE: 04/17/18 0833 LOCKS INSPECTOR: 04/17/18 1125 [facility] [place] [id number] [place] [id number]
--- NOTE | ~2018-04-02 | PN ---
PATIENT:YASMIN MATA MEDICAL RECORD: [id number] LOCATION:D.ICU D.231 ADMISSION DATE: 04/04/18 PROGRESS NOTE DATE OF SERVICE: 04/21/2018 HISTORY: This is a 52-year-old man who has had esophageal stricture repaired, but ate solid food. Subsequently, had chest pain anteriorly, radiating to the back. The patient also has severe shortness of breath, seen in the Emergency Room and was noted there to have basilar infiltrates with peritonitis. The patient was taken to surgery with evacuation and washing of the abdomen. The patient has been on the ventilator. Has had eventful course, there is also some bleeding. He has also had a seizure disorder yesterday. The patient has had focal seizures, was given Ativan and Keppra with improvement. The patient's NG tube was plugged and had some GI bleed with blood coming out of the mouth this morning. The patient is sedated on the ventilator. PHYSICAL EXAMINATION: GENERAL: Reveals middle-aged gentleman, who is in no acute distress, sedated. VITAL SIGNS: Temperature 98.2, heart rate of 84, respiratory rate 20, blood pressure 153/105, saturation 98%. SHEENT: Showed nasogastric tube. NECK: Supple. CHEST: Showed mild bilateral crackles. ABDOMEN: No abdominal tenderness. EXTREMITIES: Without clubbing, cyanosis or edema. LABORATORY DATA: Showed white count of 6.9, hemoglobin 8.5, platelet count is 235. Blood gas pH 7.41, pCO2 of 45, pO2 of 74 on 50%. Chemistry is remarkable for creatinine of 1.6, sodium is 146, bicarb is 30. ASSESSMENT: 1. Bilateral pneumonia. 2. Pleural effusion, most likely empyema. 3. Peritonitis. 4. Acute respiratory failure with hypoxia. The patient is currently on ventilator. 5. Seizure is focal, improved on the seizure medications. 6. Acute kidney injury. We will monitor. 7. Hypernatremia. Monitor this to see if the patient is free water. DISCUSSION: NEUROPSYCHIATRIC: The patient is sedated. No focal signs. CARDIOVASCULAR: There are no issues in this patient. PULMONARY/RESPIRATORY: The patient has pneumonia and is on ventilator for acute respiratory failure. GASTROINTESTINAL/DIETARY: The patient is on tube feeding. Has had gastrointestinal bleed with coagulation. The patient has anemia, which is mild. Has had blood transfusions recently. PLAN: 1. Ventilator support. 2. Continue antibiotics. 3. Continue Keppra. 4. CT scan of the head for etiology of the seizures. PROGRESS NOTE [id number] YASMIN MATA TRANSINT:[id number] Voice Confirmation ID: [id number] DOCUMENT ID: [id number] JEOL ROLLINS at 0806 CC: [id number] DICTATION DATE: 04/21/18 1227 WAREHOUSE DISTRIBUTION MANAGER: 04/21/18 1349 ADM IN [place] [address] [place] [address]
--- NOTE | ~2018-04-02 | OP ---
PATIENT NAME: YASMIN MATA MEDICAL RECORD: [id number] :65 LOCATION:D.M2 D.2138 ADMISSION DATE:04/04/18 SURGEON: PINKY SMALLWOOD MD DATE OF OPERATION: 04/05/[address] SHAUN Marquez with placement of an esophageal stent. My involvement in the procedure was a minor involvement. It consisted of some advancement of the wire that had been advanced down the esophagus and into the stomach. Some advancement of the esophageal stent deployment device and advancement of it through the EG junction and into the stomach. That ended my involvement in the operative procedure. TRANSINT:[id number] Voice Confirmation ID: [id number] DOCUMENT ID: [id number] PINKY SMALLWOOD MD at 1718 CC: MICHAEL MARQUEZ MD [id number] DICTATION DATE: 04/05/18 1715 MANAGER SERVICING: 04/05/18 1721 ADM IN [facility] [address] [place] [address]
--- NOTE | ~2018-04-02 | CN ---
PATIENT NAME:YASMIN MATA MEDICAL RECORD: [id number] : 65 LOCATION:ADRYD.2312 ADMIT DATE: 04/04/18 ACCOUNT: [id number] CONSULTING PHYSICIAN: BAY JONES MD REFERRING PHYSICIAN: MICHAEL MARQUEZ MD DATE OF CONSULTATION: 04/16/2018 HISTORY OF PRESENT ILLNESS: A 52-year-old gentleman with a history of recent exploratory laparotomy. The patient is currently intubated and history obtained from old chart and discussions with Dr. Yi, earlier today became more hypercapnic and acidotic, not had any secretions, will require intubation. He has had some atrial fibrillation in the past and during this time period, prior to intubation had bradyarrhythmias with sinus nazia, currently stable from a blood pressure and heart rate standpoint. We were asked to see him concerning his cardiovascular status. PAST MEDICAL HISTORY: Includes, 1. History of morbid obesity. 2. Recent exploratory laparotomy. 3. Hypertension. 4. Hyperlipidemia. ALLERGIES: None known. SOCIAL HISTORY: Unobtainable due to patient factors. REVIEW OF SYSTEMS: Unobtainable due to patient factors. PHYSICAL EXAMINATION: GENERAL: Intubated, sedated, no acute distress. HEENT: Normocephalic, atraumatic. NECK: No obvious bruits. HEART: Tones are distant, regular. No obvious gallop. LUNGS: Actually fairly good excursion. ABDOMEN: Soft, a well-healing incision. EXTREMITIES: Pulses are palpable, 1+. There is no edema. NEUROLOGIC: Unobtainable. IMPRESSION: Suspect bradyarrhythmias secondary to impending respiratory failure as does is hypercapnia. Currently, pressures and pulses are recovering nicely. However, given history would hold on a Cardizem drip and change this to digoxin IV. If his rhythm has become more of a breakthrough, then could switch him to amiodarone drip, which would have a net zero effect on blood pressure. Thank you for the consultation. TRANSINT:[id number] Voice Confirmation ID: [id number] DOCUMENT ID: [id number] CONSULT REPORT [id number] YASMIN MATA BAY OLIVER MD at 1118 CC: [id number] DICTATION DATE: 04/16/18 1100 EMERGENCY MANAGEMENT CONSULTANT: 04/16/18 1236 ADM IN [facility] [address] [place] [address]
--- NOTE | ~2018-04-02 | MORECARE ---
CASE MANAGEMENT DISCHARGE SUMMARY PATIENT: YASMIN MATA UNIT: [id number] ADM DATE: 04/04/18 AGE: 52 : 65 SEX: M ROOM/BED: D.2312 AUTHOR: MAIN, FISHER TRAP PHYSICIAN: REFERRING PHYSICIAN: MICHAEL MARQUEZ MD DATE OF SERVICE: 04/04/18 Discharge Plan Patient Name: YASMIN MATA [facility] [facility] 1965 Planned Disposition: Anticipated Discharge Date: Discharge Date: Expected LOS: Initial Reviewer: [email or web address] Initial Review Date: 04/02/2018 Generated: 04/14/18 10:36 am Comments DCP- Discharge Planning Updated by [email or web address]: Vandana Parrish on 04/14/18 8:[address] CM attempted to assess patient for discharge planning. Patient is on vent and unable to assess at this time and no family available at this time. 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 Have asked nursing to call me when is here to visit.CM will continue to follow and assist with discharge planning as needed DCP- Discharge Planning Updated by [email or web address]: Vandana Parrish on 04/07/18 5:[address] CM attempted to assess patient for discharge planning. Patient is on vent and unable to assess at this time and no family available at this time. CM will continue to follow and assist with discharge planning as needed Patient Name: YASMIN MATA Page [id number] All edits/amendments must be made on the electronic document DICTATION DATE: 04/14/18934 CAR SALES REPRESENTATIVE: 04/14/18934 RPT#: [id number] DC DATE: STATUS: ADM IN [facility] [address] [place] [address] END OF REPORT
--- NOTE | ~2018-04-02 | CN ---
PATIENT NAME:YASMIN MATA MEDICAL RECORD: [id number] : 65 LOCATION:ADRYD.2312 ADMIT DATE: 04/04/18 ACCOUNT: [id number] CONSULTING PHYSICIAN: ROSAURA JONES MD REFERRING PHYSICIAN: MICHAEL MARQUEZ MD DATE OF CONSULTATION: 04/08/2018 CONSULT REQUESTING PHYSICIAN: Dr. SHAUN Marquez. REASON FOR CONSULTATION: Vent management. HISTORY OF PRESENT ILLNESS: Mr. Mata is a 52-year-old gentleman, who is orally intubated. The patient has a laparoscopic esophageal repair. Readmitted with nausea and vomiting. He was diagnosed with acute Boerhaave syndrome. The patient was taken to the OR yesterday. He has an exploratory laparotomy and esophageal repair. Bilateral chest tubes were placed and the patient was brought into the ICU on the ventilator. REVIEW OF SYSTEMS: The detail is not obtainable. PAST MEDICAL HISTORY: 1. History of pulmonary embolism. 2. History of gastroesophageal reflux disease. 3. Achalasia. 4. Morbid obesity. 5. Hypertension. 6. History of myocardial infarction. 7. History of possible DVT. PAST SURGICAL HISTORY: 1. He has a kidney stone repair. 2. CABG. 3. History of laparoscopic myotomy for hiatal hernia repair. ALLERGIES: No known drug allergies. MEDICATIONS: On Opzi is reviewed. PERSONAL AND SOCIAL HISTORY: The patient is a nonsmoker, nondrinker. FAMILY HISTORY: Noncontributory. PHYSICAL EXAMINATION: GENERAL: Now, the patient is orally intubated and sedated. He is on assist control mechanical ventilation at rate of 16, tidal volume 700, PEEP of 5. HEENT: Conjunctivae are pink. Sclerae are not icteric. NECK: The neck is supple, no JVD. CHEST: There are bilateral crackles. There are bilateral chest tube in place. HEART: Rhythm regular, normal sound, no murmur. ABDOMEN: The abdomen is soft. There is open abdominal wound. RECTAL: Deferred. EXTREMITIES: No cyanosis, no clubbing. There is 1+ pedal edema. SKIN: The patient has incision of the anterior abdominal wall. CENTRAL NERVOUS SYSTEM: The patient is orally intubated and sedated. CONSULT REPORT [id number] YASMIN MATA LABORATORY DATA: CBC: The WBC is 15.5, hemoglobin is 12.9, hematocrit 40.3, the platelet count is 173. Chemistry: Sodium 143, potassium is 4, BUN is 26, creatinine 1.3. ABG: The pH is 7.33, pCO2 is 51.7, the pO2 is 93, bicarbonate is 27.8. IMPRESSION: 1. Acute hypoxic hypercapnic respiratory failure post-procedure, status post exploratory laparotomy and esophageal repair. 2. Pneumomediastinum as well as pneumoperitoneum secondary to postop complication. 3. History of achalasia. 4. Gastroesophageal reflux disease, history of pulmonary embolism and deep venous thrombosis. 5. Morbid obesity. RECOMMENDATION: 1. Continue mechanical ventilation, adjust the setting. Assist control, adjust the setting. 2. Continue with the empiric Zosyn and vancomycin. 3. Protonix drip. 4. DVT prophylaxis. 5. Follow up labs and chest radiograph. The critical care time is [address] Marquez, thank you for involving me in the care of Mr. Mata. TRANSINT:[id number] Voice Confirmation ID: [id number] DOCUMENT ID: [id number] ROSAURA JONES MD at 1215 CC: [id number] DICTATION DATE: 04/08/18 1243 AMBULANCE PARAMEDIC: 04/08/18 1314 DIS IN 04/30/18 [place] [id number] [place] [address]
--- NOTE | ~2018-04-02 | OP ---
PATIENT NAME: YASMIN MATA MEDICAL RECORD: [id number] :65 LOCATION:[facility] D.2312 ADMISSION DATE:04/04/18 SURGEON: MICHAEL MARQUEZ MD DATE OF OPERATION: 04/07/2018 SURGEON: Michale Marquez MD PREOPERATIVE DIAGNOSIS: Pneumoperitoneum. POSTOPERATIVE DIAGNOSES: Perforated esophagus, septic shock, intra-abdominal sepsis, morbid obesity, achalasia, history of Heller myotomy, Boerhaave syndrome. PROCEDURE PERFORMED: 1. Diagnostic laparoscopy. 2. Exploratory laparotomy with abdominal washout, primary repair of esophageal perforation, J-tube placement, abdominal wound closure with negative pressure wound VAC greater than 50 square cm. 3. Bilateral chest tube thoracostomy. ANESTHESIA: General. SPECIMENS: None. Gross was closely contaminated. ESTIMATED BLOOD LOSS: 200 cc. OPERATIVE COURSE: After consent was obtained, the patient was taken to the operating room and placed in the supine position on the operating room table. A timeout was taken to confirm the correct patient and procedure. General anesthesia was given via endotracheal intubation. Anesthesia placed a ultrasound-guided right internal jugular CVL as well as a right arterial A-line. The abdomen was prepped and draped in typical sterile fashion. Trocar was placed. Local anesthetic was administered in the left upper quadrant at Mcgregor's point. Using a 5-mm bladeless optical trocar, the abdomen was entered under direct laparoscopic vision. The entire abdominal cavity was full of succus. At this time, a midline abdominal incision was made using a 15 blade scalpel from the xiphoid process to the umbilicus. Dissection continued through the subcutaneous tissue using electrocautery. The fascia was opened using electrocautery. The peritoneum was incised with Metzenbaum scissors. Thereafter, the remaining portion incision was opened under direct vision using Harmonic scalpel. Approximately 3 liters of succus were drained from the abdominal cavity. Fluid cultures were sent for microbiology culture and sensitivity. An Geoff wound retractor was placed. Approximately 3 liters of irrigation were then used in the abdominal cavity. All 4 quadrants of the abdomen were copiously irrigated and suctioned. The [facility] retractor was placed. The left lobe of the liver was retracted. The hiatus and left upper quadrant were meticulously dissected and suctioned. There is a 5 cm linear perforation of the esophagus extending across the GE junction and on the anterior portion of the stomach. The esophageal stent was identified. Debridement of all necrotic tissue was performed using Metzenbaum scissors until clean healthy tissue edges were encountered with active bleeding. At this time, the perforation was closed primarily using 3-0 silk suture in a simple interrupted fashion. Two VELMA drains were placed in the abdomen, one was in the left upper quadrant, placed along the left pericolic gutter as well as just below posterior to the spleen, between the spleen and diaphragm and towards the OPERATIVE REPORT [id number] YASMIN MATA diaphragmatic hiatus. The second VELMA drain was placed in the right upper quadrant. It was placed through the diaphragmatic hiatus. Evicel was then applied to the tissue repair. An omental flap was created and placed anteriorly along the repair between the liver and the anterior surface of the esophagus. The transverse colon was retracted cephalad. The ligament of Treitz was identified approximately 30 cm from the ligament of Treitz. A 0 silk suture was used in a pursestring fashion. Small bowel enterotomy was made. J-tube was passed to the anterior abdominal wall. J-tube was advanced through the enterotomy and into the mid small bowel. The balloon was inflated. The pursestring suture was secured. The jejunum was then sewn to the peritoneum. Again, the abdomen was copiously irrigated and suctioned. At this time, the ABThera wound VAC was cut to size. It was placed into the abdominal cavity. The sponges were placed on top of the intraabdominal VAC and it was placed to suction with good seal. Next, the left and right chest were prepped and draped in typical sterile fashion. In the anterior axillary line at the fourth intercostal space, local anesthetic was injected. A skin incision was made. Dissection was carried down to the rib. A 32-Romanian chest tube was placed into the right chest. It was secured to the skin using 0 silk suture. This was repeated on the right side. Xeroform gauze was placed as well as both chest tubes were placed to suction. At the end of the case, the patient was transferred to the ICU in critical condition. At the end of the case, all needle and instrument counts were correct. No complications occurred. TRANSINT:[id number] Voice Confirmation ID: [id number] DOCUMENT ID: [id number] MICHAEL MARQUEZ MD at 1809 CC: [id number] DICTATION DATE: 04/07/18 1733 DIP GUIDER STOVES: 04/07/18 1936 ADM IN [place] [id number] [place] [id number]
--- NOTE | ~2018-04-02 | PN ---
PATIENT:YASMIN MATA MEDICAL RECORD: [id number] LOCATION:D.[facility] D.231 ADMISSION DATE: 04/04/18 PROGRESS NOTE DATE OF SERVICE: 04/20/2018 SUBJECTIVE: This is a 52-year-old man, who has had a history of esophageal stricture and had surgery. The patient ate solid food against the advice of his physician. He has severe pain and shortness of breath, was brought to the Emergency Room. He was noted to have infiltrates, hypotension, and sepsis, possibility of a ruptured esophagus or tear of the esophagus was entertained. The patient had a lavage of the abdomen. The patient was brought to the intensive care unit. He also had thoracentesis and on ventilator. This morning, the patient was noted to have some seizure-like activities. There was bleeding from the trach site. The patient was given Keppra and Xanax. He continued to seize. He has had some excessive sweating probably secondary to Precedex, this has been reduced. PHYSICAL EXAMINATION: GENERAL: Reveals a middle-aged man, who is in no acute distress, seizing. VITAL SIGNS: Temperature 99.9, heart rate of 102, respiratory rate of 26, blood pressure 146/86, saturations 96%. SHEENT: Unremarkable except for seizures. Mouth is dry. NECK: Supple. There is some fresh blood from trach. CHEST: Shows bilateral crackles. CARDIAC: Shows no jugular venous distention, murmur, or gallop. ABDOMEN: Benign. EXTREMITIES: Shows no clubbing, cyanosis, or edema. LABORATORY DATA: Lab exam showed white count of 8.3, hemoglobin 8.8, platelet count of 263. Arterial blood gas: PH 7.48, pCO2 of 44, pO2 of 73 on 50%. A chest x-ray showed patchy airspace disease, interstitial prominence, probable small left pleural effusion. ASSESSMENT: 1. Acute respiratory failure with hypoxemia. 2. Sepsis secondary to peritonitis and esophageal tear or rupture. 3. Seizure disorder. 4. Esophageal stricture. DISCUSSION: NEUROPSYCHIATRY: The patient is sedated. He is having seizures at this time. Will try Ativan 2 mg every hour as needed. CARDIOVASCULAR: No issues. He is hemodynamically stable. PULMONARY/RESPIRATORY: The patient has pneumonia, most likely aspiration. GASTROINTESTINAL/DIETARY: The patient is n.p.o. at this time. There is no GI bleed. PLAN: 1. Ventilatory support. 2. Keppra for seizures as well as Ativan. 3. Reduce Precedex. Use Ativan for agitation and seizures. TRANSINT:[id number] Voice Confirmation ID: [id number] DOCUMENT ID: [id number] PROGRESS NOTE [id number] YASMIN MATA AUGUSTINE K at 1236 CC: [id number] DICTATION DATE: 04/20/18 1545 BROODMARE BARN GROOM: 04/20/182014 ADM IN [place] [place] [address]
--- NOTE | ~2018-04-02 | PN ---
PATIENT:YASMIN MATA MEDICAL RECORD: [id number] LOCATION:D.[facility] D.231 ADMISSION DATE: 04/04/18 PROGRESS NOTE DATE OF SERVICE: 04/18/2018 SUBJECTIVE: This is a 52-year-old man has a history of Boerhaave syndrome with esophageal strictures. Patient had a surgery for repair, but asked not to eat anything solid, but drink fluids. The patient partook of potatoes and potato soup, developed chest pain radiating to the back. The patient was seen in the Emergency Room and was intubated. He felt to have acute respiratory failure with hypoxemia. The patient has been on antibiotics as well as bronchodilators. There is no fever. He has had pancytopenia. PHYSICAL EXAMINATION: GENERAL: Reveals an elderly man who is in no acute distress, sedated on propofol. VITAL SIGNS: Temperature 99.5, heart rate of 107, respiratory rate of 20, blood pressure 118/68, saturations 97%. SHEENT: Unremarkable. Pupils are equal and reactive. NECK: Supple. There is no adenopathy. Trachea is midline. CHEST: Showed mild crackles bilaterally. ABDOMEN: Benign, without any tenderness or distention. EXTREMITIES: No clubbing, cyanosis or edema. NEUROLOGIC: Intact. Lab exam shows a white count 8.5, hemoglobin 7.6, platelet count is 278,000. Arterial blood gas pH 7.46, pCO2 of 41, pO2 of 73 on 50% FiO2. Chemistry is remarkable for sodium 148, potassium 3.9, creatinine is 1.7, BUN is 32. GFR is 45. cultures are negative. Chest x-ray showed low lung volumes. There is no large pleural effusion. There is no significant change from previous x-ray. ASSESSMENT: 1. Acute respiratory failure with hypoxemia, it is probably secondary to sepsis or systemic inflammatory response syndrome. 2. Possible subacute esophageal tear, known peritonitis. 3. Esophageal stricture with reflux. 4. Leukocytosis, improving. DISCUSSION: NEUROPSYCHIATRIC: The patient's mental status decreased probably from sedation and propofol. No focal signs. CARDIOVASCULAR: There are no issues acutely at this time. PULMONARY/RESPIRATORY: The patient is intubated, has possibly some aspiration. PLAN: 1. Continue mechanical ventilation. 2. Control propofol. The patient failed Precedex change. 3. DVT prophylaxis per pharmacologically. 4. Continue antibiotics. TRANSINT:[id number] Voice Confirmation ID: [id number] DOCUMENT ID: [id number] PROGRESS NOTE [id number] YASMIN MATA AUGUSTINE K at 0809 CC: [id number] DICTATION DATE: 04/18/18 1556 FRONT OF HOUSE MANAGER: 04/18/182054 ADM IN [facility] [address] [place] [address]
--- NOTE | ~2018-04-02 | OP ---
PATIENT NAME: YASMIN MATA MEDICAL RECORD: [id number] :65 LOCATION:D.M2 D.2138 ADMISSION DATE:04/04/18 SURGEON: MICHAEL MARQUEZ MD DATE OF OPERATION: 04/05/2018 SURGEON: Michael Marquez MD (JJ) PREOPERATIVE DIAGNOSES: 1. Achalasia. 2. Chronic vomiting. 3. Morbid obesity. 4. Hypertension. POSTOPERATIVE DIAGNOSES: 1. Achalasia. 2. Chronic vomiting. 3. Morbid obesity. 4. Hypertension. ANESTHESIA: General. COMPLICATIONS: None. SPECIMENS: None. Case was contaminated. OPERATIVE COURSE: After consent was obtained, the patient was taken to the operating room. General anesthesia was given. Time-out was taken to confirm the correct patient and procedure. Bite block was placed. The scope was passed through the oropharynx. It was passed posterior to the epiglottis. Scope was advanced under direct endoscopic vision. At the GE junction, there was moderate to marked swelling. The scope was able to be passed through the gastroesophageal junction. The stomach was insufflated. Copious secretions were suctioned out of the stomach as well as the esophagus. The scope was withdrawn to the GE junction. The scope was then again passed through the GE junction. Again, there was marked inflammation. At this time, there was an area with scant amount of fibrinous exudate. There was some bubbling noted. At this time, an esophagram was performed with the gastroscope. There was no evidence of extravasation on the esophagram at the GE junction. The stomach filled with no signs of extravasation on fluoroscopy. At this time, a guidewire was placed through the gastroscope under fluoroscopy. The gastroscope was removed. A fully covered WallFlex stent was then passed over the wire under fluoroscopy and advanced into the stomach. Under fluoroscopy, the stent was deployed across the gastroesophageal junction. The repeat esophagram was then performed again with no active signs of extravasation. At the end of the case, all needle and instrument counts were correct. No complications occurred. The patient was extubated and transferred to the PACU in stable condition. TRANSINT:[id number] Voice Confirmation ID: [id number] DOCUMENT ID: [id number] OPERATIVE REPORT [id number] YASMIN MATA MICHAEL MARQUEZ MD at 9157 CC: [id number] DICTATION DATE: 04/05/18 1332 SOCIAL HUMAN SERVICES ASSISTANTS: 04/05/18 1405 ADM IN [place] [id number] [place] [id number]
--- NOTE | ~2018-04-02 | PN ---
PATIENT:YASMIN MATA MEDICAL RECORD: [id number] LOCATION:D.ICU D.231 ADMISSION DATE: 04/04/18 PROGRESS NOTE DATE OF SERVICE: 04/23/2018 SUBJECTIVE: This is a 52-year-old male who was admitted with ruptured esophagus. The patient has had esophageal stricture, which was repaired. The patient ate solid foods, with severe chest pain, shortness of breath. He was noted to have bilateral infiltrate. The patient was thought to have peritonitis and taken to surgery and washed and was noted to have pneumomediastinum as well as pneumoperitoneum. He had bilateral chest tube placement. The patient has also had seizures and was treated with Keppra as well as Ativan. He has had GI bleed and has had some blood. This morning, the patient is anemic. He is on ventilator. The patient was also noted to have pulmonary embolism. Doppler venogram showed nonocclusive thrombus, possibly old. Chest x-ray has shown pulmonary vascular congestion. A trach has been placed. PHYSICAL EXAMINATION: GENERAL: Reveals a middle-aged man who is sedated on ventilator. VITAL SIGNS: Temperature 99.9, heart rate 115, respiratory rate 22, blood pressure 106/88, saturation is 98% on 50% FiO2. SHEENT: No evidence of sternal bleeding. There is no rash. NECK: Supple. Trach is in place. CHEST: Shows good airflow bilaterally. No wheezes or crackles. HEART: Shows no jugular venous distention, murmur or gallops. ABDOMEN: Benign. No tenderness. There is no distention. EXTREMITIES: Show no clubbing, cyanosis or edema. LABORATORY DATA AND DIAGNOSTIC STUDIES: CBC show white count of 10.7, hemoglobin 6.5, platelet count is 216,000. Blood gas: pH of 7.46, pCO2 of 40, pO2 is 101. Chemistries remarkable for creatinine of 1.5, BUN is 50. Albumin is 1.5. Chest x-ray is pending. Previous x-ray showed left lower lobe left basilar airspace disease and pleural effusion, status post left chest tube removed. ASSESSMENT: 1. Acute respiratory failure with hypercapnia and hypoxia. The patient is on ventilator with trach care. 2. Pneumomediastinum status post bilateral chest tube placement. 3. Esophageal tear. 4. Severe anemia, most likely secondary to gastrointestinal bleed. 5. Acute kidney injury. 6. Pneumonia, most likely aspiration pneumonia. The patient is currently on antibiotics. Plan: Continue ventilatory support, blood transfusion. Continue antibiotics. 7. Seizure disorder. The patient is on Ativan and Keppra. 8. Pulmonary embolism, on anticoagulation. 9. The patient is probably bleeding because of anticoagulation at this time. We may need to stop anticoagulation. 10. Hypoalbuminemia. The patient is managed at this time tube feedings ongoing. DISCUSSION: 1. Neuropsychiatry: The patient is sedated. On a ventilator. No focal signs. PROGRESS NOTE [id number] YASMIN MATA 2. Cardiovascular: The patient has been treated for hypertension. 3. Pulmonary infiltrate and pneumomediastinum with 2 chest tubes. Left chest tube is removed secondary to increasing infiltrates and pleural effusion. Of note, the patient has trach. PLAN: 1. In view of continued bleeding and transfusions with anticoagulation, the Lovenox may need to be held. The patient is hemodynamically stable. There is probably healing of the thrombus. 2. Continue ventilatory support. 3. Blood transfusion to keep hemoglobin above 7. 4. Continue antibiotics for pneumonia. 5. SCDs. The patient may need IVC filter if there is an acute DVT. 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
[~2018-04-02 13:03] MED LIST: CYCLOBENZAPRINE10 MG PO; ECOTRIN325 MG PO; METOPROLOL TART50 MG PO; OXYCODONE HCL5 MG PO; PRAVACHOL20 MG PO; PROTONIX40 MG PO; ZESTRIL10 MG PO
[2018-04-02 14:00] VITALS: BP 152/83
[2018-04-02 14:06] LABS: APPEARANCE CLEAR (CLEAR); COLOR DK YELLOW (YELLOW); GLUCOSE NEGATIVE (NEGATIVE); KETONE MODERATE mg/dL (NEGATIVE); NITRITE NEGATIVE (NEGATIVE); PROTEIN NEGATIVE (NEGATIVE); SPECIFIC GRAVITY 1.015 (1.005-1.020); UROBILINOGEN NORMAL (NORMAL)
[2018-04-02 14:08] LABS: BACTERIA MODERATE /hpf (NONE SEEN); EPITHELIAL CELLS 0-5 /hpf (0-5); MUCUS >1+ /lpf (NONE SEEN); RED CELLS - URINE 0-5 /hpf (0-5); WHITE CELLS - URINE 0-5 /hpf (0-5)
[2018-04-02 14:46] LABS: BASOPHILS 0.1 % (0-2); EOSINOPHILS 1.8 % (0-7); HEMATOCRIT 36.2 % (42.0-54.0); HEMOGLOBIN 12.3 g/dL (13.5-17.5); IMMATURE GRANULOCYTES 0.4 % (0-5); LYMPHOCYTES 8.5 % (15-50); MCH 28.7 pg (26.0-34.0); MCV 84.4 fL (80.0-100.0); MEAN PLATELET VOLUME 10.6 fL (7.4-10.4); MONOCYTES 3.6 % (2-11); NEUTROPHILS 85.6 % (40-80); PLATELET COUNT 119 10x3/uL (130-400); RBC 4.29 10x6/uL (4.20-6.10); WBC 7.3 10x3/uL (4.8-10.8)
[2018-04-02 15:06] VITALS: BP 155/66
[2018-04-02 15:06] LABS: ALKALINE PHOSPHATASE 60 U/L (46-116); ALT (SGPT) 65 U/L (10-68); BILIRUBIN - TOTAL 1.07 mg/dL (0.2-1.3); CALC OSMOLALITY 282 mosm/kg (275-300); CALCIUM 8.8 mg/dL (8.5-10.1); CARBON DIOXIDE 29.4 mmol/L (21.0-32.0); CHLORIDE - SERUM 105 mmol/L (98-107); CREATININE - SERUM 0.9 mg/dL (0.6-1.3); GLUCOSE 104 mg/dL (74-106); POTASSIUM - SERUM 3.6 mmol/L (3.5-5.1); PROTEIN - SERUM 6.4 g/dL (6.4-8.2); SODIUM 143 mmol/L (136-145); UREA NITROGEN 8 mg/dL (7-18); eGFR NON AFRICAN AMERICAN > 90 mL/min (90-120)
[2018-04-02 15:17] LABS: AMYLASE - SERUM 36 U/L (25-115); CKMB 0.6 U/L (0.0-3.6); CREATINE KINASE 37 UL (21-232); LIPASE 175 U/L (73-393)
[2018-04-02 15:24] LABS: TROPONIN-I < 0.017 ng/mL (0.000-0.060)
[2018-04-02 15:46] VITALS: BP 157/67
[2018-04-02 16:23] VITALS: BP 112/65
[2018-04-02 20:48] VITALS: BP 131/84
[2018-04-03 01:05] VITALS: BP 116/74
[2018-04-03 01:35] VITALS: BP 131/84; BMI 27.4; BMI 49.5
[2018-04-03 05:15] VITALS: BP 113/66
[2018-04-03 05:31] LABS: BASOPHILS 0 % (0-2); EOSINOPHILS 0 % (0-7); HEMATOCRIT 37.7 % (42.0-54.0); HEMOGLOBIN 12.3 g/dL (13.5-17.5); IMMATURE GRANULOCYTES 0.4 % (0-5); LYMPHOCYTES 3.5 % (15-50); MCHC 32.6 g/dL (31.0-37.0); MCV 85.9 fL (80.0-100.0); NEUTROPHILS 92.1 % (40-80); PLATELET COUNT 129 10x3/uL (130-400); RBC 4.39 10x6/uL (4.20-6.10); RDW 14.4 % (11.5-14.5)
[2018-04-03 05:32] LABS: WBC 13.2 10x3/uL (4.8-10.8)
[2018-04-03 05:47] LABS: CALC OSMOLALITY 278 mosm/kg (275-300); CALCIUM 8.5 mg/dL (8.5-10.1); CARBON DIOXIDE 29.4 mmol/L (21.0-32.0); CHLORIDE - SERUM 107 mmol/L (98-107); CREATININE - SERUM 0.8 mg/dL (0.6-1.3); GLUCOSE 98 mg/dL (74-106); MAGNESIUM - SERUM 1.9 mg/dL (1.8-2.4); SODIUM 141 mmol/L (136-145); UREA NITROGEN 7 mg/dL (7-18); eGFR NON AFRICAN AMERICAN > 90 mL/min (90-120)
[2018-04-03 05:50] LABS: POTASSIUM - SERUM 4.3 mmol/L (3.5-5.1)
[2018-04-03 09:32] VITALS: BP 128/59
[2018-04-03 14:26] VITALS: BMI 49.4
[2018-04-03 15:18] VITALS: Ht 172.7 cm
[2018-04-03 16:52] VITALS: BP 116/68
[2018-04-03 20:48] VITALS: BP 120/66
[2018-04-04 06:57] VITALS: BP 131/72
[2018-04-04 09:10] LABS: BASOPHILS 0 % (0-2); EOSINOPHILS 0.1 % (0-7); HEMATOCRIT 32.6 % (42.0-54.0); HEMOGLOBIN 10.6 g/dL (13.5-17.5); IMMATURE GRANULOCYTES 0.3 % (0-5); LYMPHOCYTES 6.2 % (15-50); MCH 28.2 pg (26.0-34.0); MCHC 32.5 g/dL (31.0-37.0); MCV 86.7 fL (80.0-100.0); MEAN PLATELET VOLUME 10.4 fL (7.4-10.4); MONOCYTES 3.7 % (2-11); NEUTROPHILS 89.7 % (40-80); PLATELET COUNT 121 10x3/uL (130-400); RBC 3.76 10x6/uL (4.20-6.10); RDW 14.5 % (11.5-14.5); WBC 10.4 10x3/uL (4.8-10.8)
[2018-04-04 09:18] VITALS: BP 146/91
[2018-04-04 09:24] LABS: CALC OSMOLALITY 284 mosm/kg (275-300); CALCIUM 8.5 mg/dL (8.5-10.1); CARBON DIOXIDE 31.2 mmol/L (21.0-32.0); CHLORIDE - SERUM 109 mmol/L (98-107); CREATININE - SERUM 0.9 mg/dL (0.6-1.3); GLUCOSE 109 mg/dL (74-106); POTASSIUM - SERUM 3.8 mmol/L (3.5-5.1); SODIUM 142 mmol/L (136-145); eGFR NON AFRICAN AMERICAN > 90 mL/min (90-120)
[2018-04-04 09:31] LABS: UREA NITROGEN 14 mg/dL (7-18)
[2018-04-04 10:17] LABS: APTT 39.1 SECONDS (22.8-39.4)
[2018-04-04 10:37] LABS: NORMAL PLASMA / APTT 34.6 SECONDS (22.8-39.4)
[2018-04-04 12:39] VITALS: BP 136/79
[2018-04-04 16:34] VITALS: BP 173/91
[2018-04-04 21:08] VITALS: BP 143/76
[2018-04-05 01:40] VITALS: BP 145/76
[2018-04-05 05:40] VITALS: BP 162/92
[2018-04-05 06:51] LABS: BASOPHILS 0 % (0-2); EOSINOPHILS 0 % (0-7); HEMATOCRIT 31.5 % (42.0-54.0); HEMOGLOBIN 10.2 g/dL (13.5-17.5); IMMATURE GRANULOCYTES 0.2 % (0-5); LYMPHOCYTES 6.4 % (15-50); MCH 28.3 pg (26.0-34.0); MCHC 32.4 g/dL (31.0-37.0); MCV 87.5 fL (80.0-100.0); MEAN PLATELET VOLUME 10.6 fL (7.4-10.4); MONOCYTES 2.8 % (2-11); NEUTROPHILS 90.6 % (40-80); PLATELET COUNT 127 10x3/uL (130-400); RDW 14.5 % (11.5-14.5); WBC 8.3 10x3/uL (4.8-10.8)
[2018-04-05 07:32] LABS: CALC OSMOLALITY 291 mosm/kg (275-300); CALCIUM 8.4 mg/dL (8.5-10.1); CARBON DIOXIDE 32.7 mmol/L (21.0-32.0); CHLORIDE - SERUM 109 mmol/L (98-107); CREATININE - SERUM 0.8 mg/dL (0.6-1.3); GLUCOSE 112 mg/dL (74-106); POTASSIUM - SERUM 4.1 mmol/L (3.5-5.1); SODIUM 146 mmol/L (136-145); UREA NITROGEN 13 mg/dL (7-18); eGFR NON AFRICAN AMERICAN > 90 mL/min (90-120)
[2018-04-05 09:38] VITALS: BP 145/81
[2018-04-05 15:25] VITALS: BP 117/80
[2018-04-05 17:35] VITALS: BP 117/80
[2018-04-05 20:36] VITALS: BP 147/103
[2018-04-06 00:51] VITALS: BP 142/95
[2018-04-06 06:05] LABS: BASOPHILS 0 % (0-2); EOSINOPHILS 0.1 % (0-7); IMMATURE GRANULOCYTES 0.4 % (0-5); LYMPHOCYTES 3.8 % (15-50); MCH 28.5 pg (26.0-34.0); MCHC 32.3 g/dL (31.0-37.0); MCV 88.3 fL (80.0-100.0); MEAN PLATELET VOLUME 10.6 fL (7.4-10.4); MONOCYTES 5.3 % (2-11); NEUTROPHILS 90.4 % (40-80); RDW 14.9 % (11.5-14.5)
[2018-04-06 06:12] LABS: HEMATOCRIT 39.9 % (42.0-54.0); HEMOGLOBIN 12.9 g/dL (13.5-17.5); PLATELET COUNT 190 10x3/uL (130-400); RBC 4.52 10x6/uL (4.20-6.10); WBC 10.7 10x3/uL (4.8-10.8)
[2018-04-06 06:20] VITALS: BP 110/59
[2018-04-06 06:22] LABS: ANION GAP 12.7 mmol/L (8-16); CALCIUM 9.1 mg/dL (8.5-10.1); CARBON DIOXIDE 28.1 mmol/L (21.0-32.0); POTASSIUM - SERUM 3.8 mmol/L (3.5-5.1)
[2018-04-06 06:24] LABS: CREATININE - SERUM 1.1 mg/dL (0.6-1.3)
[2018-04-06 08:29] VITALS: BP 149/118
[2018-04-06 20:08] VITALS: BP 191/111
[2018-04-06 23:15] VITALS: BP 196/106
[2018-04-07] VITALS (29 sets, daily range): BP systolic 75–158; BP diastolic 43–102
[2018-04-07 08:31] LABS: BASOPHILS 0.1 % (0-2); EOSINOPHILS 0 % (0-7); HEMATOCRIT 42.6 % (42.0-54.0); HEMOGLOBIN 13.6 g/dL (13.5-17.5); IMMATURE GRANULOCYTES 0.5 % (0-5); LYMPHOCYTES 2.8 % (15-50); MCH 28.5 pg (26.0-34.0); MCHC 31.9 g/dL (31.0-37.0); MCV 89.1 fL (80.0-100.0); MEAN PLATELET VOLUME 11.1 fL (7.4-10.4); MONOCYTES 6.9 % (2-11); NEUTROPHILS 89.7 % (40-80); PLATELET COUNT 180 10x3/uL (130-400); RBC 4.78 10x6/uL (4.20-6.10); WBC 11.7 10x3/uL (4.8-10.8)
[2018-04-07 08:35] LABS: CALC OSMOLALITY 292 mosm/kg (275-300); CALCIUM 8.9 mg/dL (8.5-10.1); CARBON DIOXIDE 31.9 mmol/L (21.0-32.0); GLUCOSE 173 mg/dL (74-106); MAGNESIUM - SERUM 2.4 mg/dL (1.8-2.4); PHOSPHOROUS 1.9 mg/dL (2.5-4.9); POTASSIUM - SERUM 3.5 mmol/L (3.5-5.1); SODIUM 144 mmol/L (136-145); TRIGLYCERIDE 84 mg/dL (30-200); UREA NITROGEN 18 mg/dL (7-18)
[2018-04-07 08:40] LABS: CHLORIDE - SERUM 108 mmol/L (98-107)
[2018-04-07 08:41] LABS: CREATININE - SERUM 0.8 mg/dL (0.6-1.3); eGFR NON AFRICAN AMERICAN > 90 mL/min (90-120)
[2018-04-07 15:35] LABS: BASOPHILS 0 % (0-2); EOSINOPHILS 0 % (0-7); HEMATOCRIT 39.9 % (42.0-54.0); HEMOGLOBIN 12.7 g/dL (13.5-17.5); IMMATURE GRANULOCYTES 0.9 % (0-5); LYMPHOCYTES 7.3 % (15-50); MCH 28.2 pg (26.0-34.0); MCHC 31.8 g/dL (31.0-37.0); MCV 88.5 fL (80.0-100.0); MEAN PLATELET VOLUME 10.3 fL (7.4-10.4); NEUTROPHILS 82.8 % (40-80); PLATELET COUNT 162 10x3/uL (130-400); RBC 4.51 10x6/uL (4.20-6.10); RDW 14.8 % (11.5-14.5); WBC 11.5 10x3/uL (4.8-10.8)
[2018-04-08] VITALS (92 sets, daily range): BP systolic 79–124; BP diastolic 45–78
[2018-04-08 05:29] LABS: BASOPHILS 0.1 % (0-2); EOSINOPHILS 0.1 % (0-7); HEMATOCRIT 40.3 % (42.0-54.0); HEMOGLOBIN 12.9 g/dL (13.5-17.5); IMMATURE GRANULOCYTES 1.3 % (0-5); LYMPHOCYTES 4.7 % (15-50); MCV 87.6 fL (80.0-100.0); MEAN PLATELET VOLUME 10.4 fL (7.4-10.4); MONOCYTES 9.6 % (2-11); NEUTROPHILS 84.2 % (40-80); PLATELET COUNT 173 10x3/uL (130-400); RDW 15.1 % (11.5-14.5)
[2018-04-08 05:34] LABS: WBC 15.5 10x3/uL (4.8-10.8)
[2018-04-08 05:51] LABS: CALCIUM 7.9 mg/dL (8.5-10.1)
[2018-04-08 05:55] LABS: CREATININE - SERUM 1.3 mg/dL (0.6-1.3); PHOSPHOROUS 2.9 mg/dL (2.5-4.9)
[2018-04-09] VITALS (78 sets, daily range): BP systolic 84–138; BP diastolic 47–66
[2018-04-09 04:29] LABS: BASOPHILS 0.2 % (0-2); EOSINOPHILS 0.3 % (0-7); HEMOGLOBIN 11.3 g/dL (13.5-17.5); MCH 27.7 pg (26.0-34.0); MCHC 31.4 g/dL (31.0-37.0); MCV 88.2 fL (80.0-100.0); MEAN PLATELET VOLUME 10.1 fL (7.4-10.4); MONOCYTES 11.2 % (2-11); NEUTROPHILS 75.3 % (40-80); RBC 4.08 10x6/uL (4.20-6.10); RDW 15.4 % (11.5-14.5); WBC 12.6 10x3/uL (4.8-10.8)
[2018-04-09 04:30] LABS: PLATELET COUNT 131 10x3/uL (130-400)
[2018-04-09 04:42] LABS: ALBUMIN 0.9 g/dL (3.4-5.0); ANION GAP 5.9 mmol/L (8-16); BILIRUBIN - TOTAL 2.8 mg/dL (0.2-1.3); CALCIUM 7.7 mg/dL (8.5-10.1); CARBON DIOXIDE 31.3 mmol/L (21.0-32.0); MAGNESIUM - SERUM 2.1 mg/dL (1.8-2.4); PHOSPHOROUS 3.2 mg/dL (2.5-4.9); POTASSIUM - SERUM 4.2 mmol/L (3.5-5.1); PROTEIN - SERUM 4.2 g/dL (6.4-8.2)
[2018-04-09 04:51] LABS: CREATININE - SERUM 1.7 mg/dL (0.6-1.3)
[2018-04-10] VITALS (23 sets, daily range): BP systolic 99–137; BP diastolic 45–86
[2018-04-10 05:08] LABS: BASOPHILS 0.2 % (0-2); HEMATOCRIT 32.5 % (42.0-54.0); IMMATURE GRANULOCYTES 2.7 % (0-5); LYMPHOCYTES 7.9 % (15-50); MCH 27.2 pg (26.0-34.0); MCHC 30.8 g/dL (31.0-37.0); MCV 88.6 fL (80.0-100.0); MEAN PLATELET VOLUME 10.3 fL (7.4-10.4); MONOCYTES 8.8 % (2-11); NEUTROPHILS 78.4 % (40-80); PLATELET COUNT 118 10x3/uL (130-400); RBC 3.67 10x6/uL (4.20-6.10); RDW 15.8 % (11.5-14.5); WBC 12.1 10x3/uL (4.8-10.8)
[2018-04-10 05:15] LABS: ANION GAP 5.9 mmol/L (8-16); CALCIUM 7.5 mg/dL (8.5-10.1); CARBON DIOXIDE 31.5 mmol/L (21.0-32.0); CREATININE - SERUM 1.7 mg/dL (0.6-1.3); MAGNESIUM - SERUM 2.2 mg/dL (1.8-2.4); PHOSPHOROUS 3.7 mg/dL (2.5-4.9); POTASSIUM - SERUM 4.4 mmol/L (3.5-5.1)
[2018-04-11] VITALS (22 sets, daily range): BP systolic 72–136; BP diastolic 39–98
[2018-04-11 05:07] LABS: BASOPHILS 0.3 % (0-2); EOSINOPHILS 1.4 % (0-7); HEMATOCRIT 34.8 % (42.0-54.0); HEMOGLOBIN 10.7 g/dL (13.5-17.5); LYMPHOCYTES 4.3 % (15-50); MCH 27.7 pg (26.0-34.0); MCHC 30.7 g/dL (31.0-37.0); MCV 90.2 fL (80.0-100.0); MEAN PLATELET VOLUME 11.1 fL (7.4-10.4); MONOCYTES 9.1 % (2-11); NEUTROPHILS 80.9 % (40-80); RBC 3.86 10x6/uL (4.20-6.10); RDW 16.1 % (11.5-14.5)
[2018-04-11 05:26] LABS: PLATELET COUNT 151 10x3/uL (130-400)
[2018-04-11 05:43] LABS: ALBUMIN 0.8 g/dL (3.4-5.0); ANION GAP 8.2 mmol/L (8-16); BILIRUBIN - TOTAL 2.29 mg/dL (0.2-1.3); CALCIUM 7.1 mg/dL (8.5-10.1); CARBON DIOXIDE 29.9 mmol/L (21.0-32.0); CREATININE - SERUM 1.8 mg/dL (0.6-1.3); MAGNESIUM - SERUM 2.2 mg/dL (1.8-2.4); PHOSPHOROUS 3.9 mg/dL (2.5-4.9)
[2018-04-11 05:51] LABS: POTASSIUM - SERUM 5.1 mmol/L (3.5-5.1)
[2018-04-12] VITALS (23 sets, daily range): BP systolic 101–169; BP diastolic 59–98
[2018-04-12 04:26] LABS: BASOPHILS 0.2 % (0-2); EOSINOPHILS 1.7 % (0-7); IMMATURE GRANULOCYTES 4.9 % (0-5); LYMPHOCYTES 4.9 % (15-50); MCH 27.6 pg (26.0-34.0); MCHC 30.6 g/dL (31.0-37.0); MCV 90.3 fL (80.0-100.0); MONOCYTES 10.8 % (2-11); NEUTROPHILS 77.5 % (40-80); PLATELET COUNT 169 10x3/uL (130-400); RDW 16.1 % (11.5-14.5); WBC 16.9 10x3/uL (4.8-10.8)
[2018-04-12 04:42] LABS: HEMATOCRIT 27.8 % (42.0-54.0); HEMOGLOBIN 8.5 g/dL (13.5-17.5); RBC 3.08 10x6/uL (4.20-6.10)
[2018-04-12 04:54] LABS: ANION GAP 4.8 mmol/L (8-16); CALCIUM 7.2 mg/dL (8.5-10.1); CARBON DIOXIDE 29.9 mmol/L (21.0-32.0); CREATININE - SERUM 1.8 mg/dL (0.6-1.3); MAGNESIUM - SERUM 2.2 mg/dL (1.8-2.4); PHOSPHOROUS 3.8 mg/dL (2.5-4.9); POTASSIUM - SERUM 4.7 mmol/L (3.5-5.1)
[2018-04-12 17:14] LABS: AEROBE ID Final report (())
[2018-04-13] VITALS (24 sets, daily range): BP systolic 116–189; BP diastolic 67–96
[2018-04-13 04:01] LABS: BASOPHILS 0.2 % (0-2); EOSINOPHILS 2.2 % (0-7); HEMATOCRIT 25.7 % (42.0-54.0); HEMOGLOBIN 7.8 g/dL (13.5-17.5); LYMPHOCYTES 4.4 % (15-50); MCH 27.5 pg (26.0-34.0); MCHC 30.4 g/dL (31.0-37.0); MCV 90.5 fL (80.0-100.0); MEAN PLATELET VOLUME 10.6 fL (7.4-10.4); MONOCYTES 7.1 % (2-11); NEUTROPHILS 80.1 % (40-80); PLATELET COUNT 201 10x3/uL (130-400); RBC 2.84 10x6/uL (4.20-6.10); RDW 16.1 % (11.5-14.5); WBC 16.7 10x3/uL (4.8-10.8)
[2018-04-13 04:18] LABS: CALCIUM 7.1 mg/dL (8.5-10.1); CARBON DIOXIDE 33.4 mmol/L (21.0-32.0); CREATININE - SERUM 1.5 mg/dL (0.6-1.3); POTASSIUM - SERUM 4.4 mmol/L (3.5-5.1)
[2018-04-14] VITALS (24 sets, daily range): BP systolic 133–207; BP diastolic 74–134
[2018-04-14 03:57] LABS: BASOPHILS 0.2 % (0-2); EOSINOPHILS 2.5 % (0-7); HEMATOCRIT 29.2 % (42.0-54.0); HEMOGLOBIN 9.3 g/dL (13.5-17.5); IMMATURE GRANULOCYTES 6.6 % (0-5); LYMPHOCYTES 5.7 % (15-50); MCH 28.2 pg (26.0-34.0); MCHC 31.8 g/dL (31.0-37.0); MEAN PLATELET VOLUME 10.5 fL (7.4-10.4); MONOCYTES 7.7 % (2-11); NEUTROPHILS 77.3 % (40-80); RDW 15.7 % (11.5-14.5); WBC 14.2 10x3/uL (4.8-10.8)
[2018-04-14 04:04] LABS: MCV 88.5 fL (80.0-100.0); PLATELET COUNT 243 10x3/uL (130-400)
[2018-04-14 04:15] LABS: ANION GAP 6.1 mmol/L (8-16); CALCIUM 7.3 mg/dL (8.5-10.1); CARBON DIOXIDE 32.3 mmol/L (21.0-32.0); CREATININE - SERUM 1.4 mg/dL (0.6-1.3); PHOSPHOROUS 2.9 mg/dL (2.5-4.9); POTASSIUM - SERUM 4.4 mmol/L (3.5-5.1)
[2018-04-14 18:10] LABS: AEROBE ID Final report (()); RESULT 1 Rothia dentocariosa (())
[2018-04-15] VITALS (20 sets, daily range): BP systolic 156–180; BP diastolic 80–108
[2018-04-15 05:05] LABS: BASOPHILS 0.2 % (0-2); EOSINOPHILS 0.1 % (0-7); HEMATOCRIT 31.9 % (42.0-54.0); HEMOGLOBIN 10.1 g/dL (13.5-17.5); IMMATURE GRANULOCYTES 3.8 % (0-5); LYMPHOCYTES 4.6 % (15-50); MCHC 31.7 g/dL (31.0-37.0); MCV 88.4 fL (80.0-100.0); MEAN PLATELET VOLUME 10.2 fL (7.4-10.4); MONOCYTES 3.6 % (2-11); NEUTROPHILS 87.7 % (40-80); RBC 3.61 10x6/uL (4.20-6.10); RDW 15.3 % (11.5-14.5); WBC 15.1 10x3/uL (4.8-10.8)
[2018-04-15 05:09] LABS: PLATELET COUNT 308 10x3/uL (130-400)
[2018-04-15 05:20] LABS: ANION GAP 7.1 mmol/L (8-16); CALCIUM 7.8 mg/dL (8.5-10.1); CARBON DIOXIDE 32.6 mmol/L (21.0-32.0); CREATININE - SERUM 1.3 mg/dL (0.6-1.3); POTASSIUM - SERUM 4.7 mmol/L (3.5-5.1)
[2018-04-15 15:11] LABS: AEROBE ID Final report (())
[2018-04-16] VITALS (38 sets, daily range): BP systolic 83–173; BP diastolic 52–99
[2018-04-16 04:19] LABS: BASOPHILS 0.2 % (0-2); EOSINOPHILS 0.1 % (0-7); HEMATOCRIT 32.2 % (42.0-54.0); HEMOGLOBIN 10.1 g/dL (13.5-17.5); IMMATURE GRANULOCYTES 2.1 % (0-5); LYMPHOCYTES 3.9 % (15-50); MCH 28.3 pg (26.0-34.0); MCHC 31.4 g/dL (31.0-37.0); MCV 90.2 fL (80.0-100.0); MEAN PLATELET VOLUME 9.8 fL (7.4-10.4); MONOCYTES 8.8 % (2-11); NEUTROPHILS 84.9 % (40-80); PLATELET COUNT 318 10x3/uL (130-400); RBC 3.57 10x6/uL (4.20-6.10); RDW 15.7 % (11.5-14.5); WBC 12.4 10x3/uL (4.8-10.8)
[2018-04-16 04:33] LABS: ALBUMIN 1.4 g/dL (3.4-5.0); ANION GAP 4.9 mmol/L (8-16); CALCIUM 7.7 mg/dL (8.5-10.1); CARBON DIOXIDE 33.3 mmol/L (21.0-32.0); CREATININE - SERUM 1.2 mg/dL (0.6-1.3); MAGNESIUM - SERUM 2.1 mg/dL (1.8-2.4); PHOSPHOROUS 3.3 mg/dL (2.5-4.9); POTASSIUM - SERUM 4.2 mmol/L (3.5-5.1); VANCOMYCIN - TROUGH 12.9 ug/mL (10.0-20.0)
[2018-04-17] VITALS (25 sets, daily range): BP systolic 107–167; BP diastolic 63–99
[2018-04-17 04:32] LABS: BASOPHILS 0.4 % (0-2); EOSINOPHILS 3.1 % (0-7); HEMATOCRIT 27.1 % (42.0-54.0); HEMOGLOBIN 8.4 g/dL (13.5-17.5); IMMATURE GRANULOCYTES 2.4 % (0-5); LYMPHOCYTES 10.1 % (15-50); MCH 27.9 pg (26.0-34.0); MEAN PLATELET VOLUME 9.7 fL (7.4-10.4); MONOCYTES 6.5 % (2-11); NEUTROPHILS 77.5 % (40-80); PLATELET COUNT 305 10x3/uL (130-400); RBC 3.01 10x6/uL (4.20-6.10)
[2018-04-17 04:33] LABS: WBC 8.1 10x3/uL (4.8-10.8)
[2018-04-17 05:16] LABS: ALBUMIN 1.4 g/dL (3.4-5.0); ANION GAP 6.4 mmol/L (8-16); BILIRUBIN - TOTAL 2.1 mg/dL (0.2-1.3); CALCIUM 7.7 mg/dL (8.5-10.1); CARBON DIOXIDE 33.3 mmol/L (21.0-32.0); MAGNESIUM - SERUM 2.6 mg/dL (1.8-2.4); PHOSPHOROUS 2.9 mg/dL (2.5-4.9); POTASSIUM - SERUM 3.7 mmol/L (3.5-5.1); PROTEIN - SERUM 5.5 g/dL (6.4-8.2); TROPONIN-I 0.042 ng/mL (0.000-0.060)
[2018-04-17 05:25] LABS: CREATININE - SERUM 1.6 mg/dL (0.6-1.3)
[2018-04-18] VITALS (24 sets, daily range): BP systolic 117–143; BP diastolic 62–89
[2018-04-18 05:58] LABS: BASOPHILS 0.2 % (0-2); EOSINOPHILS 2.6 % (0-7); IMMATURE GRANULOCYTES 1.4 % (0-5); LYMPHOCYTES 8.7 % (15-50); MCH 27.9 pg (26.0-34.0); MCHC 30.9 g/dL (31.0-37.0); MCV 90.2 fL (80.0-100.0); MEAN PLATELET VOLUME 9.5 fL (7.4-10.4); NEUTROPHILS 80.1 % (40-80); PLATELET COUNT 347 10x3/uL (130-400); RDW 16.3 % (11.5-14.5); WBC 9.2 10x3/uL (4.8-10.8)
[2018-04-18 06:21] LABS: RBC 2.15 10x6/uL (4.20-6.10)
[2018-04-18 06:24] LABS: ANION GAP 10.3 mmol/L (8-16); CALCIUM 7.5 mg/dL (8.5-10.1); CARBON DIOXIDE 30.6 mmol/L (21.0-32.0); CREATININE - SERUM 1.7 mg/dL (0.6-1.3); HEMATOCRIT 19.4 % (42.0-54.0); POTASSIUM - SERUM 3.9 mmol/L (3.5-5.1)
[2018-04-18 12:14] LABS: BASOPHILS 0.1 % (0-2); EOSINOPHILS 2.7 % (0-7); IMMATURE GRANULOCYTES 1.2 % (0-5); LYMPHOCYTES 9.5 % (15-50); MCH 27.8 pg (26.0-34.0); MCHC 30.9 g/dL (31.0-37.0); MCV 90.1 fL (80.0-100.0); MEAN PLATELET VOLUME 9.2 fL (7.4-10.4); MONOCYTES 5.3 % (2-11); NEUTROPHILS 81.2 % (40-80); PLATELET COUNT 278 10x3/uL (130-400); RDW 16.4 % (11.5-14.5); WBC 8.5 10x3/uL (4.8-10.8)
[2018-04-18 12:16] LABS: HEMATOCRIT 24.6 % (42.0-54.0); HEMOGLOBIN 7.6 g/dL (13.5-17.5); RBC 2.73 10x6/uL (4.20-6.10)
[2018-04-19] VITALS (24 sets, daily range): BP systolic 108–158; BP diastolic 54–98
[2018-04-19 05:35] LABS: BASOPHILS 0.3 % (0-2); EOSINOPHILS 2.7 % (0-7); HEMATOCRIT 28.7 % (42.0-54.0); IMMATURE GRANULOCYTES 1.4 % (0-5); LYMPHOCYTES 10.5 % (15-50); MCHC 31.4 g/dL (31.0-37.0); MCV 89.4 fL (80.0-100.0); MEAN PLATELET VOLUME 9.5 fL (7.4-10.4); MONOCYTES 4.9 % (2-11); NEUTROPHILS 80.2 % (40-80); PLATELET COUNT 264 10x3/uL (130-400); RBC 3.21 10x6/uL (4.20-6.10); RDW 16.9 % (11.5-14.5); WBC 9.7 10x3/uL (4.8-10.8)
[2018-04-19 06:35] LABS: ALBUMIN 1.6 g/dL (3.4-5.0); ANION GAP 11.7 mmol/L (8-16); BILIRUBIN - TOTAL 1.78 mg/dL (0.2-1.3); CALCIUM 7.6 mg/dL (8.5-10.1); CARBON DIOXIDE 29.4 mmol/L (21.0-32.0); CREATININE - SERUM 1.8 mg/dL (0.6-1.3); MAGNESIUM - SERUM 2.5 mg/dL (1.8-2.4); POTASSIUM - SERUM 4.1 mmol/L (3.5-5.1); PROTEIN - SERUM 6.3 g/dL (6.4-8.2)
[2018-04-20] VITALS (24 sets, daily range): BP systolic 125–171; BP diastolic 74–107
[2018-04-20 03:55] LABS: BASOPHILS 0.5 % (0-2); EOSINOPHILS 4.1 % (0-7); HEMATOCRIT 28.9 % (42.0-54.0); HEMOGLOBIN 8.8 g/dL (13.5-17.5); IMMATURE GRANULOCYTES 2.4 % (0-5); LYMPHOCYTES 10.5 % (15-50); MCH 27.7 pg (26.0-34.0); MCHC 30.4 g/dL (31.0-37.0); MCV 90.9 fL (80.0-100.0); MEAN PLATELET VOLUME 9.7 fL (7.4-10.4); MONOCYTES 5.4 % (2-11); NEUTROPHILS 77.1 % (40-80); PLATELET COUNT 263 10x3/uL (130-400); RBC 3.18 10x6/uL (4.20-6.10); RDW 16.9 % (11.5-14.5); WBC 8.3 10x3/uL (4.8-10.8)
[2018-04-20 03:58] LABS: ANION GAP 9.7 mmol/L (8-16); CALCIUM 7.3 mg/dL (8.5-10.1); CARBON DIOXIDE 30.6 mmol/L (21.0-32.0); CREATININE - SERUM 1.7 mg/dL (0.6-1.3); POTASSIUM - SERUM 4.3 mmol/L (3.5-5.1)
[2018-04-21] VITALS (22 sets, daily range): BP systolic 123–178; BP diastolic 76–110
[2018-04-21 04:09] LABS: BASOPHILS 0.4 % (0-2); EOSINOPHILS 4.5 % (0-7); HEMATOCRIT 27.5 % (42.0-54.0); HEMOGLOBIN 8.5 g/dL (13.5-17.5); IMMATURE GRANULOCYTES 2.8 % (0-5); MCHC 30.9 g/dL (31.0-37.0); MCV 90.5 fL (80.0-100.0); MEAN PLATELET VOLUME 9.2 fL (7.4-10.4); MONOCYTES 6.1 % (2-11); NEUTROPHILS 75.2 % (40-80); PLATELET COUNT 235 10x3/uL (130-400); RBC 3.04 10x6/uL (4.20-6.10); RDW 16.6 % (11.5-14.5); WBC 6.9 10x3/uL (4.8-10.8)
[2018-04-21 04:24] LABS: ALBUMIN 1.6 g/dL (3.4-5.0); ANION GAP 11.3 mmol/L (8-16); BILIRUBIN - TOTAL 1.28 mg/dL (0.2-1.3); CALCIUM 7.4 mg/dL (8.5-10.1); CARBON DIOXIDE 29.9 mmol/L (21.0-32.0); CREATININE - SERUM 1.6 mg/dL (0.6-1.3); MAGNESIUM - SERUM 2.4 mg/dL (1.8-2.4); POTASSIUM - SERUM 4.2 mmol/L (3.5-5.1); PROTEIN - SERUM 6.5 g/dL (6.4-8.2)
[2018-04-22] VITALS (24 sets, daily range): BP systolic 100–139; BP diastolic 67–94
[2018-04-22 04:15] LABS: BASOPHILS 0.1 % (0-2); EOSINOPHILS 0.3 % (0-7); LYMPHOCYTES 8.2 % (15-50); MCH 27.4 pg (26.0-34.0); MCHC 30.4 g/dL (31.0-37.0); MEAN PLATELET VOLUME 9.4 fL (7.4-10.4); MONOCYTES 4.6 % (2-11); NEUTROPHILS 84.8 % (40-80); PLATELET COUNT 242 10x3/uL (130-400); RDW 16.3 % (11.5-14.5)
[2018-04-22 04:18] LABS: WBC 9.2 10x3/uL (4.8-10.8)
[2018-04-22 04:20] LABS: HEMOGLOBIN 5.2 g/dL (13.5-17.5)
[2018-04-22 04:21] LABS: HEMATOCRIT 17.1 % (42.0-54.0)
[2018-04-22 04:40] LABS: ALBUMIN 1.4 g/dL (3.4-5.0); BILIRUBIN - TOTAL 0.95 mg/dL (0.2-1.3); CALCIUM 7.1 mg/dL (8.5-10.1); CARBON DIOXIDE 30.6 mmol/L (21.0-32.0); CREATININE - SERUM 1.6 mg/dL (0.6-1.3); MAGNESIUM - SERUM 2.5 mg/dL (1.8-2.4); POTASSIUM - SERUM 4.6 mmol/L (3.5-5.1); PROTEIN - SERUM 5.8 g/dL (6.4-8.2)
[2018-04-22 19:28] LABS: HEMATOCRIT 20.3 % (42.0-54.0)
[2018-04-22 19:45] LABS: HEMOGLOBIN 6.4 g/dL (13.5-17.5)
[2018-04-22 21:00] LABS: INR 1.25 (0.85-1.17); PROTIME 15.3 SECONDS (11.6-15.0)
[2018-04-23] VITALS (23 sets, daily range): BP systolic 100–144; BP diastolic 61–96
[2018-04-23 04:30] LABS: BASOPHILS 0.3 % (0-2); IMMATURE GRANULOCYTES 3.1 % (0-5); LYMPHOCYTES 10.2 % (15-50); MCH 29.3 pg (26.0-34.0); MCHC 32.8 g/dL (31.0-37.0); MCV 89.2 fL (80.0-100.0); MEAN PLATELET VOLUME 9.6 fL (7.4-10.4); MONOCYTES 7.1 % (2-11); NEUTROPHILS 78.3 % (40-80); PLATELET COUNT 216 10x3/uL (130-400); RBC 2.22 10x6/uL (4.20-6.10); WBC 10.7 10x3/uL (4.8-10.8)
[2018-04-23 04:31] LABS: HEMATOCRIT 19.8 % (42.0-54.0); HEMOGLOBIN 6.5 g/dL (13.5-17.5)
[2018-04-23 04:56] LABS: ALBUMIN 1.5 g/dL (3.4-5.0); ANION GAP 8.3 mmol/L (8-16); BILIRUBIN - TOTAL 0.82 mg/dL (0.2-1.3); CARBON DIOXIDE 27.8 mmol/L (21.0-32.0); CREATININE - SERUM 1.5 mg/dL (0.6-1.3); POTASSIUM - SERUM 4.1 mmol/L (3.5-5.1); PROTEIN - SERUM 5.6 g/dL (6.4-8.2)
[2018-04-23 22:35] LABS: HEMOGLOBIN 8.4 g/dL (13.5-17.5)
[2018-04-24] VITALS (23 sets, daily range): BP systolic 120–173; BP diastolic 81–105
[2018-04-24 06:03] LABS: BASOPHILS 0.2 % (0-2); HEMATOCRIT 24.3 % (42.0-54.0); HEMOGLOBIN 7.9 g/dL (13.5-17.5); IMMATURE GRANULOCYTES 2.4 % (0-5); LYMPHOCYTES 7.7 % (15-50); MCH 28.7 pg (26.0-34.0); MCHC 32.5 g/dL (31.0-37.0); MCV 88.4 fL (80.0-100.0); MEAN PLATELET VOLUME 9.9 fL (7.4-10.4); MONOCYTES 7.7 % (2-11); PLATELET COUNT 207 10x3/uL (130-400); RDW 15.8 % (11.5-14.5); WBC 12.1 10x3/uL (4.8-10.8)
[2018-04-24 06:10] LABS: RBC 2.75 10x6/uL (4.20-6.10)
[2018-04-24 06:26] LABS: ALBUMIN 1.6 g/dL (3.4-5.0); ANION GAP 13.2 mmol/L (8-16); BILIRUBIN - TOTAL 1.35 mg/dL (0.2-1.3); CARBON DIOXIDE 29.1 mmol/L (21.0-32.0); CREATININE - SERUM 1.4 mg/dL (0.6-1.3); MAGNESIUM - SERUM 2.9 mg/dL (1.8-2.4)
[2018-04-24 06:28] LABS: POTASSIUM - SERUM 5.3 mmol/L (3.5-5.1)
[2018-04-24 23:28] LABS: HEMATOCRIT 24.9 % (42.0-54.0); HEMOGLOBIN 8.2 g/dL (13.5-17.5)
[2018-04-25] VITALS (28 sets, daily range): BP systolic 133–165; BP diastolic 56–103
[2018-04-25 05:37] LABS: BASOPHILS 0.2 % (0-2); EOSINOPHILS 1.2 % (0-7); HEMATOCRIT 24.5 % (42.0-54.0); LYMPHOCYTES 11.4 % (15-50); MCH 29.2 pg (26.0-34.0); MCHC 32.7 g/dL (31.0-37.0); MCV 89.4 fL (80.0-100.0); MEAN PLATELET VOLUME 9.7 fL (7.4-10.4); NEUTROPHILS 77.2 % (40-80); PLATELET COUNT 215 10x3/uL (130-400); RBC 2.74 10x6/uL (4.20-6.10); RDW 15.4 % (11.5-14.5); WBC 9.4 10x3/uL (4.8-10.8)
[2018-04-25 06:17] LABS: ALBUMIN 1.7 g/dL (3.4-5.0); BILIRUBIN - TOTAL 1.86 mg/dL (0.2-1.3); CALCIUM 7.9 mg/dL (8.5-10.1); CARBON DIOXIDE 29.3 mmol/L (21.0-32.0); CREATININE - SERUM 1.3 mg/dL (0.6-1.3); MAGNESIUM - SERUM 2.6 mg/dL (1.8-2.4); PHOSPHOROUS 4.1 mg/dL (2.5-4.9); PROTEIN - SERUM 6.1 g/dL (6.4-8.2)
[2018-04-25 06:18] LABS: ANION GAP 11.1 mmol/L (8-16); POTASSIUM - SERUM 4.4 mmol/L (3.5-5.1)
[2018-04-26] VITALS (24 sets, daily range): BP systolic 15–173; BP diastolic 69–92
[2018-04-26 06:01] LABS: BASOPHILS 0.4 % (0-2); HEMATOCRIT 23.7 % (42.0-54.0); IMMATURE GRANULOCYTES 3.3 % (0-5); LYMPHOCYTES 10.4 % (15-50); MCH 28.7 pg (26.0-34.0); MCHC 31.6 g/dL (31.0-37.0); MCV 90.8 fL (80.0-100.0); MEAN PLATELET VOLUME 9.8 fL (7.4-10.4); MONOCYTES 7.9 % (2-11); PLATELET COUNT 229 10x3/uL (130-400); RBC 2.61 10x6/uL (4.20-6.10); RDW 15.5 % (11.5-14.5); WBC 7.8 10x3/uL (4.8-10.8)
[2018-04-26 06:11] LABS: APTT 28.6 SECONDS (22.8-39.4); INR 1.19 (0.85-1.17); PROTIME 14.7 SECONDS (11.6-15.0)
[2018-04-26 06:20] LABS: ALBUMIN 1.7 g/dL (3.4-5.0); BILIRUBIN - TOTAL 1.85 mg/dL (0.2-1.3); CALCIUM 7.4 mg/dL (8.5-10.1); CARBON DIOXIDE 27.9 mmol/L (21.0-32.0); CREATININE - SERUM 1.3 mg/dL (0.6-1.3); MAGNESIUM - SERUM 2.2 mg/dL (1.8-2.4); PHENYTOIN (DILANTIN) 3.5 ug/mL (10.0-20.0); PHOSPHOROUS 3.2 mg/dL (2.5-4.9)
[2018-04-26 06:22] LABS: ANION GAP 9.6 mmol/L (8-16); POTASSIUM - SERUM 3.5 mmol/L (3.5-5.1)
[2018-04-26 06:37] LABS: HEMOGLOBIN 7.5 g/dL (13.5-17.5)
[2018-04-26 23:06] LABS: HEMATOCRIT 26.5 % (42.0-54.0); HEMOGLOBIN 8.5 g/dL (13.5-17.5)
[2018-04-27] VITALS (24 sets, daily range): BP systolic 141–181; BP diastolic 79–102
[2018-04-27 05:03] LABS: BASOPHILS 0.3 % (0-2); EOSINOPHILS 2.6 % (0-7); HEMATOCRIT 22.6 % (42.0-54.0); LYMPHOCYTES 12.4 % (15-50); MCH 29.7 pg (26.0-34.0); MCHC 32.3 g/dL (31.0-37.0); MCV 91.9 fL (80.0-100.0); MEAN PLATELET VOLUME 9.9 fL (7.4-10.4); NEUTROPHILS 74.7 % (40-80); RBC 2.46 10x6/uL (4.20-6.10); RDW 15.6 % (11.5-14.5); WBC 6.2 10x3/uL (4.8-10.8)
[2018-04-27 05:13] LABS: ALBUMIN 1.7 g/dL (3.4-5.0); BILIRUBIN - TOTAL 1.31 mg/dL (0.2-1.3); CARBON DIOXIDE 24.7 mmol/L (21.0-32.0); CREATININE - SERUM 1.1 mg/dL (0.6-1.3); DIGOXIN 0.1 ng/mL (0.90-2.00); PROTEIN - SERUM 5.1 g/dL (6.4-8.2)
[2018-04-27 05:16] LABS: CALCIUM 6.4 mg/dL (8.5-10.1)
[2018-04-27 05:17] LABS: HEMOGLOBIN 7.3 g/dL (13.5-17.5); PLATELET COUNT 182 10x3/uL (130-400); POTASSIUM - SERUM 2.7 mmol/L (3.5-5.1)
[2018-04-27 05:56] LABS: BASOPHILS 0.3 % (0-2); EOSINOPHILS 2.1 % (0-7); IMMATURE GRANULOCYTES 3.7 % (0-5); LYMPHOCYTES 10.7 % (15-50); MCH 29.1 pg (26.0-34.0); MCHC 32.4 g/dL (31.0-37.0); MCV 90.1 fL (80.0-100.0); MEAN PLATELET VOLUME 9.9 fL (7.4-10.4); MONOCYTES 7.3 % (2-11); NEUTROPHILS 75.9 % (40-80); PLATELET COUNT 203 10x3/uL (130-400); RDW 15.4 % (11.5-14.5); WBC 7.6 10x3/uL (4.8-10.8)
[2018-04-27 06:01] LABS: HEMATOCRIT 27.2 % (42.0-54.0); HEMOGLOBIN 8.8 g/dL (13.5-17.5); RBC 3.02 10x6/uL (4.20-6.10)
[2018-04-27 06:16] LABS: BILIRUBIN - TOTAL 1.67 mg/dL (0.2-1.3); CALCIUM 7.9 mg/dL (8.5-10.1); CREATININE - SERUM 1.3 mg/dL (0.6-1.3); PROTEIN - SERUM 6.3 g/dL (6.4-8.2)
[2018-04-27 06:19] LABS: ANION GAP 9.4 mmol/L (8-16); DIGOXIN 0.06 ng/mL (0.90-2.00); POTASSIUM - SERUM 3.4 mmol/L (3.5-5.1)
[2018-04-28] VITALS (24 sets, daily range): BP systolic 156–175; BP diastolic 81–101
[2018-04-28 04:01] LABS: BASOPHILS 0.3 % (0-2); EOSINOPHILS 1.4 % (0-7); HEMATOCRIT 26.7 % (42.0-54.0); HEMOGLOBIN 8.5 g/dL (13.5-17.5); IMMATURE GRANULOCYTES 1.7 % (0-5); MCH 29.2 pg (26.0-34.0); MCHC 31.8 g/dL (31.0-37.0); MCV 91.8 fL (80.0-100.0); MEAN PLATELET VOLUME 9.6 fL (7.4-10.4); NEUTROPHILS 81.6 % (40-80); PLATELET COUNT 220 10x3/uL (130-400); RBC 2.91 10x6/uL (4.20-6.10); RDW 15.5 % (11.5-14.5); WBC 9.3 10x3/uL (4.8-10.8)
[2018-04-28 04:20] LABS: ALBUMIN 2.1 g/dL (3.4-5.0); ANION GAP 5.8 mmol/L (8-16); BILIRUBIN - TOTAL 1.63 mg/dL (0.2-1.3); CALCIUM 7.8 mg/dL (8.5-10.1); CARBON DIOXIDE 29.6 mmol/L (21.0-32.0); CREATININE - SERUM 1.2 mg/dL (0.6-1.3); MAGNESIUM - SERUM 2.1 mg/dL (1.8-2.4); PHENYTOIN (DILANTIN) 3.5 ug/mL (10.0-20.0); PHOSPHOROUS 2.7 mg/dL (2.5-4.9); POTASSIUM - SERUM 3.4 mmol/L (3.5-5.1); PROTEIN - SERUM 6.1 g/dL (6.4-8.2)
[2018-04-28 13:19] LABS: FUNGUS STAIN Final report (())
[2018-04-28 15:26] LABS: ACID FAST SMEAR Negative (()); AFB SPECIMEN PROCESSING Concentration (())
[2018-04-29] VITALS (13 sets, daily range): BP systolic 154–170; BP diastolic 83–102
[2018-04-29 04:56] LABS: BASOPHILS 0.1 % (0-2); EOSINOPHILS 2.6 % (0-7); HEMATOCRIT 28.6 % (42.0-54.0); HEMOGLOBIN 9.1 g/dL (13.5-17.5); IMMATURE GRANULOCYTES 2.4 % (0-5); LYMPHOCYTES 9.9 % (15-50); MCH 29.3 pg (26.0-34.0); MCHC 31.8 g/dL (31.0-37.0); MEAN PLATELET VOLUME 9.4 fL (7.4-10.4); MONOCYTES 4.5 % (2-11); NEUTROPHILS 80.5 % (40-80); PLATELET COUNT 193 10x3/uL (130-400); RBC 3.11 10x6/uL (4.20-6.10); RDW 15.3 % (11.5-14.5); WBC 8.4 10x3/uL (4.8-10.8)
[2018-04-29 05:03] LABS: ANION GAP 8.1 mmol/L (8-16); CALCIUM 7.7 mg/dL (8.5-10.1); CARBON DIOXIDE 28.6 mmol/L (21.0-32.0); CREATININE - SERUM 1.1 mg/dL (0.6-1.3); POTASSIUM - SERUM 3.7 mmol/L (3.5-5.1)
[2018-04-29 05:04] LABS: INR 1.29 (0.85-1.17); PROTIME 15.6 SECONDS (11.6-15.0)
[2018-04-29 05:05] LABS: APTT 30.6 SECONDS (22.8-39.4)
[2018-04-30] VITALS (18 sets, daily range): BP systolic 117–177; BP diastolic 78–112
[2018-04-30 05:59] LABS: BASOPHILS 0.3 % (0-2); EOSINOPHILS 2.9 % (0-7); HEMOGLOBIN 7.8 g/dL (13.5-17.5); IMMATURE GRANULOCYTES 1.9 % (0-5); LYMPHOCYTES 10.2 % (15-50); MCH 28.5 pg (26.0-34.0); MCHC 31.2 g/dL (31.0-37.0); MCV 91.2 fL (80.0-100.0); MEAN PLATELET VOLUME 9.5 fL (7.4-10.4); MONOCYTES 6.9 % (2-11); NEUTROPHILS 77.8 % (40-80); PLATELET COUNT 169 10x3/uL (130-400); RBC 2.74 10x6/uL (4.20-6.10); WBC 7.3 10x3/uL (4.8-10.8)
[2018-04-30 06:29] LABS: ALBUMIN 4.1 g/dL (3.4-5.0); ALKALINE PHOSPHATASE 94 U/L (46-116); ALT (SGPT) 40 U/L (10-68); BILIRUBIN - TOTAL 1.41 mg/dL (0.2-1.3); CALC OSMOLALITY 292 mosm/kg (275-300); CARBON DIOXIDE 23.8 mmol/L (21.0-32.0); CHLORIDE - SERUM 105 mmol/L (98-107); GLUCOSE 98 mg/dL (74-106); MAGNESIUM - SERUM 1.7 mg/dL (1.8-2.4); PHENYTOIN (DILANTIN) 3.1 ug/mL (10.0-20.0); POTASSIUM - SERUM 3.5 mmol/L (3.5-5.1); PROTEIN - SERUM 7.9 g/dL (6.4-8.2); SODIUM 143 mmol/L (136-145); UREA NITROGEN 34 mg/dL (7-18)
[2018-04-30 06:31] LABS: CREATININE - SERUM 0.8 mg/dL (0.6-1.3); eGFR NON AFRICAN AMERICAN > 90 mL/min (90-120)
[2018-05-25 15:23] LABS: FUNGUS MYCOLOGY CULTURE Final report (())
== END 2018-04-30 21:05 | disposition short-term general hospital (02) | DRG 3 ==
LOC: D.ER 13:03 → D.EDHOLD 17:39 → OBSVTIME 17:39 → D.EDHOLD 17:39 → D.M2 17:39 → D.ICU 04-04 14:57
PROVIDERS: Anesthesiology; Family Medicine; Internal Medicine; Internal Medicine Pulmonary Disease; Surgery
PROC: 0D748DZ Dilation of Esophagogastric Junction with Intraluminal Device, Via Natural or Artificial Opening Endoscopic (ICD-10-PCS; principal; 2018-04-05 11:30)
PROC: 0D9A0ZZ Drainage of Jejunum, Open Approach (ICD-10-PCS; 2018-04-07)
PROC: 0W9B00Z Drainage of Left Pleural Cavity with Drainage Device, Open Approach (ICD-10-PCS; 2018-04-07)
PROC: 0W9900Z Drainage of Right Pleural Cavity with Drainage Device, Open Approach (ICD-10-PCS; 2018-04-07)
PROC: 3E1M38Z Irrigation of Peritoneal Cavity using Irrigating Substance, Percutaneous Approach (ICD-10-PCS; 2018-04-07)
PROC: 0DQ50ZZ Repair Esophagus, Open Approach (ICD-10-PCS; 2018-04-07 12:00)
PROC: 5A1955Z Respiratory Ventilation, Greater than 96 Consecutive Hours (ICD-10-PCS; 2018-04-07 12:00)
PROC: 2W03X6Z Change Pressure Dressing on Abdominal Wall (ICD-10-PCS; 2018-04-10)
PROC: 3E1M38Z Irrigation of Peritoneal Cavity using Irrigating Substance, Percutaneous Approach (ICD-10-PCS; 2018-04-10)
PROC: 0BH17EZ Insertion of Endotracheal Airway into Trachea, Via Natural or Artificial Opening (ICD-10-PCS; 2018-04-16)
PROC: 5A1955Z Respiratory Ventilation, Greater than 96 Consecutive Hours (ICD-10-PCS; 2018-04-16)
PROC: 0B113F4 Bypass Trachea to Cutaneous with Tracheostomy Device, Percutaneous Approach (ICD-10-PCS; 2018-04-19)
PROC: 0BC68ZZ Extirpation of Matter from Right Lower Lobe Bronchus, Via Natural or Artificial Opening Endoscopic (ICD-10-PCS; 2018-04-27)
DX: K22.0 Achalasia of cardia (principal); J96.01 Acute respiratory failure with hypoxia; K22.3 Perforation of esophagus; J96.02 Acute respiratory failure with hypercapnia; I46.9 Cardiac arrest, cause unspecified; I26.99 Other pulmonary embolism without acute cor pulmonale; K65.8 Other peritonitis; J18.9 Pneumonia, unspecified organism; Z68.42 Body mass index [BMI] 45.0-49.9, adult; N17.9 Acute kidney failure, unspecified; J90 Pleural effusion, not elsewhere classified; G93.1 Anoxic brain damage, not elsewhere classified; E66.01 Morbid (severe) obesity due to excess calories; I10 Essential (primary) hypertension; Y83.8 Other surgical procedures as the cause of abnormal reaction of the patient, or of later complication, without mention of misadventure at the time of the procedure; J98.2 Interstitial emphysema; D50.9 Iron deficiency anemia, unspecified; K21.9 Gastro-esophageal reflux disease without esophagitis; R73.9 Hyperglycemia, unspecified; B96.89 Other specified bacterial agents as the cause of diseases classified elsewhere; G40.909 Epilepsy, unspecified, not intractable, without status epilepticus; I27.20 Pulmonary hypertension, unspecified